=== PATIENT | male | born 1965 | race African-American/Black ===

== ENCOUNTER 2016-10-05 17:13 | Emergency (ER) | payer MEDICAID ==
[~2016-10-05] VITALS: Ht 180.3 cm; Wt 75.0 kg
[~2016-10-05 17:13] MED LIST: seroquel; zoloft
[2016-10-06 02:45] VITALS: BP 136/78
== END 2016-10-06 02:59 | disposition home or self-care (01) ==
LOC: ER 17:14
DX: S20.212A Contusion of left front wall of thorax, initial encounter (principal); I10 Essential (primary) hypertension; F31.9 Bipolar disorder, unspecified; W22.8XXA Striking against or struck by other objects, initial encounter; Y93.89 Activity, other specified; Y99.8 Other external cause status; Y92.89 Other specified places as the place of occurrence of the external cause
CPT/HCPCS: 36415; 99284; G0482; Z7610

== ENCOUNTER 2016-10-19 19:38 | Emergency (ER) | payer MEDICAID ==
[~2016-10-19] VITALS: Ht 177.8 cm; Wt 69.0 kg
[2016-10-19] MEDS ORDERED: ACETAMINOPHEN 325MG TABLET PO ONE (20:45)
[2016-10-19 21:04] LABS: HEMATOCRIT. 34.5 % (42.0-52.0); HEMOGLOBIN. 11.4 g/dL (14.0-18.0); MEAN CORPUSCULAR HEMOGLOBIN 26.8 pg (28.0-32.0); MEAN CORPUSCULAR HGB CONC 33.2 g/dL (31.0-37.0); MEAN CORPUSCULAR VOLUME 80.9 fL (80.0-94.0); MEAN PLATELET VOLUME 7.3 fl (7.4-10.4); PLATELET 238 x1000/uL (130-400); RED BLOOD CELL COUNT 4.26 mill/uL (4.7-6.1); RED CELL DISTRIBUTION WIDTH 17.7 % (11.6-14.6); WHITE BLOOD COUNT 4.4 x1000/uL (4.5-11.0)
[2016-10-19 21:05] LABS: DIFFERENTIAL COMMENT 1
[2016-10-19 21:06] LABS: CHLORIDE 107 mEq/L (98-107)
[2016-10-19 21:17] LABS: ALANINE AMINOTRANSFERASE 48 IU/L (13-61); ALBUMIN 3.6 g/dL (3.4-5.0); ANION GAP 15; CALCIUM 8.4 mg/dL (8.5-10.1); CARBON DIOXIDE 25 mEq/L (21-32); INDEX HEMOLYSI 1 (1-3); INDEX ICTERIC 1 (1-4); INDEX LIPEMIC 1 (1-3); UREA NITROGEN BLOOD 6 mg/dL (7-21); eGFR > 60 mL/min (>60)
[2016-10-19 21:21] LABS: PLATELET ESTIMATE NORMAL
[2016-10-19 21:25] LABS: ETHANOL BLOOD 385 mg/dL
[2016-10-19 21:34] LABS: CLARITY URINE CLEAR (CLEAR); COLOR URINE YELLOW (YELLOW); GLUCOSE URINE NEGATIVE (NEGATIVE); KETONES URINE NEGATIVE (NEGATIVE); LEUKOCYTE ESTERASE URINE NEGATIVE (NEGATIVE); NITRITE URINE NEGATIVE (NEGATIVE); OCCULT BLOOD URINE NEGATIVE (NEGATIVE); PROTEIN URINE NEGATIVE (NEGATIVE); SPECIFIC GRAVITY URINE 1.011 (1.005-1.030); UROBILINOGEN URINE 0.2 E.U./dL (0.2-1.0)
[2016-10-20 02:16] VITALS: BP 136/90
== END 2016-10-20 02:21 | disposition home or self-care (01) ==
LOC: ER 19:38
DX: F10.10 Alcohol abuse, uncomplicated (principal); F31.9 Bipolar disorder, unspecified; I10 Essential (primary) hypertension; F20.9 Schizophrenia, unspecified; F17.210 Nicotine dependence, cigarettes, uncomplicated; Z79.899 Other long term (current) drug therapy; Y90.8 Blood alcohol level of 240 mg/100 ml or more
CPT/HCPCS: 36415; 74176; 80053; 81003; 85025; 99285; G0482; Z7610

== ENCOUNTER 2017-01-08 11:00 | Emergency (ER) | payer MEDICAID ==
[~2017-01-08] VITALS: Ht 172.7 cm; Wt 75.0 kg
[2017-01-08 12:42] VITALS: BP 126/72
== END 2017-01-08 12:46 | disposition home or self-care (01) ==
LOC: ER 11:00
DX: F10.229 Alcohol dependence with intoxication, unspecified (principal); Y90.9 Presence of alcohol in blood, level not specified; F20.9 Schizophrenia, unspecified; I10 Essential (primary) hypertension; F17.290 Nicotine dependence, other tobacco product, uncomplicated
CPT/HCPCS: 99283

== ENCOUNTER 2017-07-19 14:49 | Emergency (ER) | payer MEDICAID ==
[~2017-07-19] VITALS: Ht 172.7 cm; Wt 70.0 kg
[2017-07-19] MEDS ORDERED: SODIUM CHLORIDE 0.9% 1,000 ML IV ONE (15:15)
[2017-07-19 15:39] VITALS: BP 118/78
[2017-07-19 15:43] LABS: CHLORIDE 105 mEq/L (98-107)
[2017-07-19 15:52] LABS: BASOPHILS % 0.2 % (0.0-2.0); EOSINOPHILS % 1.5 % (0.0-5.0); HEMATOCRIT. 35.8 % (42.0-52.0); HEMOGLOBIN. 11.8 g/dL (14.0-18.0); MEAN CORPUSCULAR HEMOGLOBIN 27.6 pg (28.0-32.0); MEAN CORPUSCULAR VOLUME 83.9 fL (80.0-94.0); MEAN PLATELET VOLUME 7.6 fl (7.4-10.4); MONOCYTES % 13.3 % (2.0-8.0); PLATELET 159 x1000/uL (130-400); RED BLOOD CELL COUNT 4.27 mill/uL (4.7-6.1); RED CELL DISTRIBUTION WIDTH 15.4 % (11.6-14.6)
[2017-07-19 15:57] LABS: ETHANOL BLOOD 392 mg/dL
== END 2017-07-19 16:13 | disposition left against medical advice (07) ==
LOC: ER 14:49
DX: S09.90XA Unspecified injury of head, initial encounter (principal); F10.229 Alcohol dependence with intoxication, unspecified; F20.9 Schizophrenia, unspecified; I10 Essential (primary) hypertension; F31.9 Bipolar disorder, unspecified; F17.200 Nicotine dependence, unspecified, uncomplicated; X58.XXXA Exposure to other specified factors, initial encounter; Y93.89 Activity, other specified; Y92.89 Other specified places as the place of occurrence of the external cause; Y99.8 Other external cause status
CPT/HCPCS: 36415; 80048; 85025; 99284; G0482; J7030

== ENCOUNTER 2017-12-19 17:27 | Emergency (ER) | payer MEDICAID ==
[~2017-12-19] VITALS: Ht 170.2 cm; Wt 65.0 kg
[2017-12-19] MEDS ORDERED: IBUPROFEN 600MG TABLET PO ONE (19:30)
[2017-12-20 00:15] VITALS: BP 122/76
== END 2017-12-20 00:20 | disposition home or self-care (01) ==
LOC: ER 19:14
DX: T51.91XA Toxic effect of unspecified alcohol, accidental (unintentional), initial encounter (principal); L02.415 Cutaneous abscess of right lower limb; I10 Essential (primary) hypertension; J45.909 Unspecified asthma, uncomplicated; Y92.89 Other specified places as the place of occurrence of the external cause
CPT/HCPCS: 36415; 73560; 99285; G0482

== ENCOUNTER 2017-12-31 11:41 | Emergency (ER) | payer MEDICAID ==
[~2017-12-31] VITALS: Ht 172.7 cm; Wt 65.0 kg
[2017-12-31] MEDS ORDERED: LIDOCAINE HCL 1% 20ML VIAL (Pyxis) INJ INFIL ONE (12:15)
[2017-12-31] MEDS ORDERED: CEFTRIAXONE SODIUM 1 G/VIAL IM ONE (12:15)
[2017-12-31 12:16] VITALS: BP 107/82
[2017-12-31] MEDS ORDERED: LIDOCAINE HCL/PF 1% 10 MG/ML 5ML VIAL IJ SCH (12:30)
== END 2017-12-31 17:14 | disposition left against medical advice (07) ==
LOC: ER 11:59
DX: S81.831D Puncture wound without foreign body, right lower leg, subsequent encounter (principal); F10.229 Alcohol dependence with intoxication, unspecified; J45.909 Unspecified asthma, uncomplicated; I10 Essential (primary) hypertension; X58.XXXD Exposure to other specified factors, subsequent encounter; Y90.9 Presence of alcohol in blood, level not specified
CPT/HCPCS: 73590; 87070; 87077; 87186; 87205; 96372; 99285; J0696; J3490; Z7610

== ENCOUNTER 2018-03-13 23:21 | Emergency (ER) | payer MEDICAID, OTHER ==
[~2018-03-13] VITALS: Ht 167.6 cm; Wt 77.0 kg
[2018-03-14] MEDS ORDERED: SODIUM CHLORIDE 0.9% 1,000 ML IV ONE (00:28)
[2018-03-14 00:59] LABS: BASOPHILS % 0.4 % (0.0-2.0); HEMATOCRIT. 36.6 % (42.0-52.0); HEMOGLOBIN. 12.2 g/dL (14.0-18.0); LYMPHOCYTES % 31.9 % (20.0-50.0); MEAN CORPUSCULAR HEMOGLOBIN 28.3 pg (28.0-32.0); MEAN CORPUSCULAR VOLUME 84.8 fL (80.0-94.0); MEAN PLATELET VOLUME 7.4 fl (7.4-10.4); MONOCYTES % 11.1 % (2.0-8.0); NEUTROPHILS % 55.6 % (40.0-76.0); PLATELET 150 x1000/uL (130-400); RED BLOOD CELL COUNT 4.31 mill/uL (4.7-6.1); RED CELL DISTRIBUTION WIDTH 15.6 % (11.6-14.6)
[2018-03-14 01:06] LABS: CHLORIDE 102 mEq/L (98-107)
[2018-03-14 01:07] LABS: PROTHROMBIN TIME 10.5 sec (9.1-11.1)
[2018-03-14 01:18] LABS: CLARITY URINE CLEAR (CLEAR); COLOR URINE YELLOW (YELLOW); KETONES URINE NEGATIVE (NEGATIVE); LEUKOCYTE ESTERASE URINE NEGATIVE (NEGATIVE); NITRITE URINE NEGATIVE (NEGATIVE); OCCULT BLOOD URINE NEGATIVE (NEGATIVE); PH URINE 5.5 (4.5-8.0); PROTEIN URINE NEGATIVE (NEGATIVE); SPECIFIC GRAVITY URINE 1.001 (1.005-1.030); UROBILINOGEN URINE 0.2 E.U./dL (0.2-1.0)
[2018-03-14 01:40] LABS: *AMPHETAMINES SCREEN URINE NEGATIVE (NEGATIVE); *BARBITURATES SCREEN URINE NEGATIVE (NEGATIVE); *BENZODIAZEPINES SCREEN URINE NEGATIVE (NEGATIVE); *COCAINE SCREEN URINE NEGATIVE (NEGATIVE); METHADONE URINE SCREEN NEGATIVE (NEGATIVE); OPIATES URINE SCREEN NEGATIVE (NEGATIVE)
[2018-03-14 01:41] LABS: CANNABINOID URINE SCREEN NEGATIVE (NEGATIVE); PHENCYCLIDINE URINE SCREEN NEGATIVE (NEGATIVE)
[2018-03-14 02:07] LABS: ETHANOL BLOOD 374 mg/dL
[2018-03-14] MEDS ORDERED: POTASSIUM CHLORIDE 20MEQ TABLET SR PO ONE (03:00)
[2018-03-14 06:37] VITALS: BP 126/75
== END 2018-03-14 07:05 | disposition home or self-care (01) ==
LOC: ER 23:21
DX: F10.229 Alcohol dependence with intoxication, unspecified (principal); F31.9 Bipolar disorder, unspecified; F20.9 Schizophrenia, unspecified; V29.88XA Motorcycle rider (driver) (passenger) injured in other specified transport accidents, initial encounter; Y93.89 Activity, other specified; Y92.89 Other specified places as the place of occurrence of the external cause; Y99.8 Other external cause status; Y90.8 Blood alcohol level of 240 mg/100 ml or more
CPT/HCPCS: 36415; 70450; 71045; 72125; 80053; 80305; 80307; 80329; 81003; 85025; 85610; 93005; 99285; G0482; J7030; Z7610

== ENCOUNTER 2018-03-19 16:23 | Emergency (ER) | payer MEDICAID, OTHER ==
[~2018-03-19] VITALS: Ht 170.2 cm; Wt 67.0 kg
[2018-03-19 16:36] VITALS: BP 138/78
== END 2018-03-19 17:04 | disposition left against medical advice (07) ==
LOC: ER 16:50
DX: Z53.21 Procedure and treatment not carried out due to patient leaving prior to being seen by health care provider (principal)

== ENCOUNTER 2018-04-12 14:16 | Emergency (ER) | payer MEDICAID ==
[~2018-04-12] VITALS: Ht 172.7 cm; Wt 75.0 kg
[2018-04-12 14:30] VITALS: BP 105/64
[2018-04-12] MEDS ORDERED: SODIUM CHLORIDE 0.9% 1,000 ML IV ONE (14:37)
[2018-04-12] MEDS ORDERED: AZITHROMYCIN 500 MG TABLET PO ONE (14:45)
[2018-04-12] MEDS ORDERED: PENICILLIN G BENZATHINE 2,400,000 UNITS/4ML SYR IM ONE (14:45)
[2018-04-12 15:21] LABS: *AMPHETAMINES SCREEN URINE NEGATIVE (NEGATIVE); *BARBITURATES SCREEN URINE NEGATIVE (NEGATIVE); *BENZODIAZEPINES SCREEN URINE NEGATIVE (NEGATIVE); *COCAINE SCREEN URINE NEGATIVE (NEGATIVE); CANNABINOID URINE SCREEN NEGATIVE (NEGATIVE); METHADONE URINE SCREEN NEGATIVE (NEGATIVE); OPIATES URINE SCREEN NEGATIVE (NEGATIVE); PHENCYCLIDINE URINE SCREEN NEGATIVE (NEGATIVE)
[2018-04-12 15:53] LABS: BASOPHILS % 0.9 % (0.0-2.0); EOSINOPHILS % 0.8 % (0.0-5.0); HEMATOCRIT. 35.3 % (42.0-52.0); HEMOGLOBIN. 11.9 g/dL (14.0-18.0); LYMPHOCYTES % 42.1 % (20.0-50.0); MEAN CORPUSCULAR HEMOGLOBIN 28.5 pg (28.0-32.0); MEAN PLATELET VOLUME 7.4 fl (7.4-10.4); MONOCYTES % 7.7 % (2.0-8.0); NEUTROPHILS % 48.5 % (40.0-76.0); PLATELET 222 x1000/uL (130-400); RED BLOOD CELL COUNT 4.16 mill/uL (4.7-6.1); RED CELL DISTRIBUTION WIDTH 16.1 % (11.6-14.6)
[2018-04-12 15:57] LABS: CHLORIDE 109 mEq/L (98-107)
[2018-04-12 16:14] LABS: ETHANOL BLOOD 403 mg/dL
[2018-04-12] MEDS ORDERED: IBUPROFEN 600MG TABLET PO ONE (16:45)
[2018-04-16 07:16] LABS: CHLAMYDIA TRACHOMATIS NAA Negative (Negative); NEISSERIA GONORRHOEAE NAA Negative (Negative)
== END 2018-04-12 17:20 | disposition home or self-care (01) ==
LOC: ER 14:16
DX: F10.229 Alcohol dependence with intoxication, unspecified (principal); Y90.8 Blood alcohol level of 240 mg/100 ml or more; R51 Headache; M25.561 Pain in right knee; A53.9 Syphilis, unspecified; Z71.89 Other specified counseling; I10 Essential (primary) hypertension; Z91.81 History of falling
CPT/HCPCS: 36415; 70450; 73560; 80053; 80305; 82962; 85025; 87491; 87591; 99285; G0482; J0561; J7030

== ENCOUNTER 2019-03-20 21:06 | Emergency (ER) | payer MEDICAID ==
[~2019-03-20] VITALS: Ht 177.8 cm; Wt 72.0 kg
[2019-03-21] MEDS ORDERED: TETANUS, DIPHTHERIA, PERTUSSIS VAC/PF 0.5ML (>7YR OLD) IM ONE (03:45)
[2019-03-21] MEDS ORDERED: LIDOCAINE 1%/EPI 1:100,000 10 ML VIAL IJ ONE (03:45)
[2019-03-21 07:06] VITALS: BP 133/87
== END 2019-03-21 07:09 | disposition home or self-care (01) ==
LOC: ER 21:35
DX: S01.01XA Laceration without foreign body of scalp, initial encounter (principal); F10.129 Alcohol abuse with intoxication, unspecified; I10 Essential (primary) hypertension; F20.9 Schizophrenia, unspecified; F17.200 Nicotine dependence, unspecified, uncomplicated; Y90.9 Presence of alcohol in blood, level not specified; W01.0XXA Fall on same level from slipping, tripping and stumbling without subsequent striking against object, initial encounter; Y93.89 Activity, other specified; Y92.89 Other specified places as the place of occurrence of the external cause; Y99.8 Other external cause status
CPT/HCPCS: 12001; 70450; 90471; 90715; 99284; J3490

== ENCOUNTER 2019-04-16 20:54 | Emergency (ER) | payer MEDICAID, OTHER ==
[~2019-04-16] VITALS: Ht 175.3 cm; Wt 68.0 kg
[2019-04-16] MEDS ORDERED: ACETAMINOPHEN 325MG TABLET PO ONE (23:00)
[2019-04-17 08:33] VITALS: BP 140/95
== END 2019-04-17 08:33 | disposition home or self-care (01) ==
LOC: ER 21:09
DX: G89.29 Other chronic pain (principal); M54.9 Dorsalgia, unspecified; M79.605 Pain in left leg; M79.604 Pain in right leg; F10.129 Alcohol abuse with intoxication, unspecified; I10 Essential (primary) hypertension; F20.9 Schizophrenia, unspecified; Z88.2 Allergy status to sulfonamides; Z79.899 Other long term (current) drug therapy; Z59.0 Homelessness; Y90.9 Presence of alcohol in blood, level not specified
CPT/HCPCS: 99283

== ENCOUNTER 2019-04-21 21:31 | Emergency (ER) | payer OTHER ==
[~2019-04-21] VITALS: Ht 172.7 cm; Wt 69.0 kg
[2019-04-22] MEDS ORDERED: HYDROCODONE/ACETAMINOPHEN 5/325MG TABLET PO ONE (00:30)
[2019-04-22 03:36] VITALS: BP 118/78
== END 2019-04-22 03:38 | disposition home or self-care (01) ==
LOC: ER 21:31
DX: G89.29 Other chronic pain (principal); M25.552 Pain in left hip; Z71.89 Other specified counseling; I10 Essential (primary) hypertension; Z87.828 Personal history of other (healed) physical injury and trauma; Z86.73 Personal history of transient ischemic attack (TIA), and cerebral infarction without residual deficits
CPT/HCPCS: 99283; Z7610

== ENCOUNTER 2019-07-02 13:36 | Emergency (ER) | payer MEDICAID ==
[~2019-07-02] VITALS: Ht 175.3 cm; Wt 73.0 kg
[2019-07-02 18:05] VITALS: BP 112/76
== END 2019-07-02 18:08 | disposition home or self-care (01) ==
LOC: ER 13:36
DX: M79.602 Pain in left arm (principal); K08.89 Other specified disorders of teeth and supporting structures
CPT/HCPCS: 99283

== ENCOUNTER 2019-07-18 14:46 | Emergency (ER) | payer MEDICAID ==
[~2019-07-18] VITALS: Ht 172.7 cm; Wt 76.0 kg
[2019-07-18 14:48] VITALS: BP 103/57
== END 2019-07-18 15:20 | disposition left against medical advice (07) ==
LOC: ER 14:52
DX: Z53.21 Procedure and treatment not carried out due to patient leaving prior to being seen by health care provider (principal)

== ENCOUNTER 2019-08-04 01:30 | Emergency (ER) | payer MEDICAID ==
[~2019-08-04] VITALS: Ht 172.7 cm; Wt 72.0 kg
[2019-08-04 08:17] VITALS: BP 125/88
== END 2019-08-04 08:33 | disposition home or self-care (01) ==
LOC: ER 01:30
DX: F10.129 Alcohol abuse with intoxication, unspecified (principal); G89.29 Other chronic pain; R47.81 Slurred speech; F17.200 Nicotine dependence, unspecified, uncomplicated; F19.10 Other psychoactive substance abuse, uncomplicated; Z59.0 Homelessness; Z98.890 Other specified postprocedural states; Z88.2 Allergy status to sulfonamides; Y90.9 Presence of alcohol in blood, level not specified
CPT/HCPCS: 99283

== ENCOUNTER 2019-09-10 23:14 | Emergency (ER) | payer MEDICAID ==
[~2019-09-10] VITALS: Ht 175.3 cm; Wt 69.0 kg
[2019-09-11] MEDS ORDERED: IBUPROFEN 600MG TABLET PO ONE (05:45)
[2019-09-11 08:15] VITALS: BP 114/72
== END 2019-09-11 08:55 | disposition home or self-care (01) ==
LOC: ER 23:14
DX: F10.129 Alcohol abuse with intoxication, unspecified (principal); Y90.8 Blood alcohol level of 240 mg/100 ml or more; R03.0 Elevated blood-pressure reading, without diagnosis of hypertension; F20.9 Schizophrenia, unspecified; Z88.2 Allergy status to sulfonamides
CPT/HCPCS: 36415; 80320; 99285; G0480

== ENCOUNTER 2019-10-06 15:12 | Emergency (ER) | payer MEDICAID ==
[~2019-10-06] VITALS: Ht 180.3 cm; Wt 73.0 kg
[2019-10-07 06:00] VITALS: BP 155/83
== END 2019-10-07 09:00 | disposition home or self-care (01) ==
LOC: ER 15:12
DX: F10.129 Alcohol abuse with intoxication, unspecified (principal); I10 Essential (primary) hypertension; Z91.012 Allergy to eggs; Y90.9 Presence of alcohol in blood, level not specified
CPT/HCPCS: 99285

== ENCOUNTER 2020-03-07 15:31 | Emergency (ER) | payer MEDICAID ==
[~2020-03-07] VITALS: Ht 180.3 cm; Wt 82.0 kg
[2020-03-07 15:38] VITALS: BP 102/78
== END 2020-03-07 17:32 | disposition left against medical advice (07) ==
LOC: ER 15:31
DX: Z53.21 Procedure and treatment not carried out due to patient leaving prior to being seen by health care provider (principal)

== ENCOUNTER 2020-04-18 21:03 | Emergency (ER) | payer MEDICAID ==
[~2020-04-18] VITALS: Ht 175.3 cm; Wt 632.0 kg
[2020-04-18 21:08] VITALS: BP 153/94
[2020-04-18] MEDS ORDERED: NAPROXEN 250MG TABLET PO ONE (23:30)
[2020-04-18] MEDS ORDERED: IBUPROFEN 600MG TABLET PO ONE (23:45)
== END 2020-04-19 04:17 | disposition home or self-care (01) ==
LOC: ER 21:03
DX: M25.561 Pain in right knee (principal); I10 Essential (primary) hypertension; F20.9 Schizophrenia, unspecified; Z88.2 Allergy status to sulfonamides
CPT/HCPCS: 73562; 99283

== ENCOUNTER 2020-07-26 13:28 | Emergency (ER) | payer MEDICAID ==
[~2020-07-26] VITALS: Ht 182.9 cm; Wt 85.0 kg
[2020-07-26] MEDS ORDERED: SODIUM CHLORIDE 0.9% 1,000 ML IV ONE (13:45)
[2020-07-26 14:15] LABS: HEMATOCRIT. 28.6 % (42.0-52.0); HEMOGLOBIN. 9.1 g/dL (14.0-18.0); MEAN CORPUSCULAR VOLUME 69.4 fL (80.0-94.0); MEAN PLATELET VOLUME 8.5 fl (7.4-10.4); PLATELET 123 x1000/uL (130-400); RED BLOOD CELL COUNT 4.13 mill/uL (4.7-6.1); RED CELL DISTRIBUTION WIDTH 22.1 % (11.6-14.6)
[2020-07-26 14:20] LABS: CHLORIDE 104 mEq/L (98-107)
[2020-07-26 14:33] LABS: PLATELET ESTIMATE SLIGHTLY DECREASED
[2020-07-26 14:47] LABS: ETHANOL BLOOD 448 mg/dL
[2020-07-26 21:07] VITALS: BP 113/75
== END 2020-07-26 21:16 | disposition home or self-care (01) ==
LOC: ER 13:41
DX: F10.129 Alcohol abuse with intoxication, unspecified (principal); I10 Essential (primary) hypertension; Z88.2 Allergy status to sulfonamides; Z86.59 Personal history of other mental and behavioral disorders; Y90.8 Blood alcohol level of 240 mg/100 ml or more
CPT/HCPCS: 36415; 80053; 80320; 85025; 93005; 96360; 96361; 99285; J7030; G0480

== ENCOUNTER 2020-10-06 16:32 | Inpatient (IN) | payer MEDICAID ==
[~2020-10-06] VITALS: Ht 172.7 cm; Wt 60.8 kg
[~2020-10-06 16:32] MED LIST changes: +TOPUD PO
[2020-10-06] MEDS ORDERED: SODIUM CHLORIDE 0.9% 1,000 ML IV ONE (17:00)
[2020-10-06 17:37] LABS: CLARITY URINE CLEAR (CLEAR); COLOR URINE YELLOW (YELLOW); KETONES URINE TRACE (NEGATIVE); LEUKOCYTE ESTERASE URINE NEGATIVE (NEGATIVE); NITRITE URINE NEGATIVE (NEGATIVE); OCCULT BLOOD URINE NEGATIVE (NEGATIVE); PH URINE 5.5 (4.5-8.0); PROTEIN URINE NEGATIVE (NEGATIVE); SPECIFIC GRAVITY URINE 1.008 (1.005-1.030); UROBILINOGEN URINE 0.2 E.U./dL (0.2-1.0)
[2020-10-06 17:41] LABS: CHLORIDE 105 mEq/L (98-107)
[2020-10-06 17:42] LABS: BASOPHILS % 2.6 % (0.0-2.0); EOSINOPHILS % 1.5 % (0.0-5.0); HEMATOCRIT. 25.4 % (42.0-52.0); HEMOGLOBIN. 8.3 g/dL (14.0-18.0); LYMPHOCYTES % 37.6 % (20.0-50.0); MEAN CORPUSCULAR HEMOGLOBIN 24.5 pg (28.0-32.0); MEAN CORPUSCULAR VOLUME 74.7 fL (80.0-94.0); MEAN PLATELET VOLUME 6.8 fl (7.4-10.4); MONOCYTES % 11.1 % (2.0-8.0); NEUTROPHILS % 47.2 % (40.0-76.0); PLATELET 267 x1000/uL (130-400); RED BLOOD CELL COUNT 3.39 mill/uL (4.7-6.1); RED CELL DISTRIBUTION WIDTH 23.2 % (11.6-14.6)
[2020-10-06 17:58] LABS: ETHANOL BLOOD 426 mg/dL
[2020-10-06 18:10] LABS: PLATELET ESTIMATE NORMAL
[2020-10-06 18:10] LABS: *AMPHETAMINES SCREEN URINE NEGATIVE (NEGATIVE); *BARBITURATES SCREEN URINE NEGATIVE (NEGATIVE); *BENZODIAZEPINES SCREEN URINE NEGATIVE (NEGATIVE); *COCAINE SCREEN URINE NEGATIVE (NEGATIVE); METHADONE URINE SCREEN NEGATIVE (NEGATIVE); OPIATES URINE SCREEN NEGATIVE (NEGATIVE); PHENCYCLIDINE URINE SCREEN NEGATIVE (NEGATIVE)
[2020-10-06 18:12] LABS: CANNABINOID URINE SCREEN NEGATIVE (NEGATIVE)
[2020-10-06] MEDS ORDERED: FOLIC ACID 1 MG, THIAMINE HCL 100 MG, MVI, ADULT NO.1 10 ML in DEXTROSE 5% WATER 1,000 ML IV ONE (19:00)
[2020-10-06 22:05] VITALS: BP 135/80
[2020-10-07] VITALS: BP 135/80
[2020-10-07] MEDS ORDERED: HYDROCODONE/ACETAMINOPHEN 5/325MG TABLET PO PRN (00:15)
[2020-10-07] MEDS ORDERED: POTASSIUM CHLORIDE 20MEQ TABLET SR PO NR (01:00)
[2020-10-07] MEDS: SODIUM CHLORIDE 0.9% 1,000 ML IV SCH ×2 (01:22→14:40)
[2020-10-07 04:00] VITALS: BP 148/83
[2020-10-07] MEDS: CHLORDIAZEPOXIDE 25MG CAPSULE PO SCH ×3 (06:05→21:37)
[2020-10-07 08:00] VITALS: BP 119/91
[2020-10-07] MEDS: FOLIC ACID 1MG TABLET PO SCH (09:30)
[2020-10-07] MEDS: THIAMINE HCL 100MG TABLET PO SCH (09:30)
[2020-10-07 12:00] VITALS: BP 163/92
[2020-10-07] MEDS: SERTRALINE HCL 25MG TABLET PO SCH (14:39)
[2020-10-07] MEDS: MULTIVITAMINS,THER W-MINERALS TABLET PO SCH (14:40)
[2020-10-07] MEDS: AMLODIPINE 2.5MG TABLET PO SCH (14:40)
[2020-10-07 16:00] VITALS: BP 153/87
[2020-10-07 17:49] LABS: FOLIC ACID (FOLATE) SERUM >20 ng/mL ng/mL (>5.38)
[2020-10-07 17:54] LABS: FERRITIN 22 ng/mL (22-322)
[2020-10-07 18:01] LABS: VITAMIN B12 SERUM 570 pg/mL (211-911)
[2020-10-07 20:00] VITALS: BP_SYST 137; BP_SYST 142; BP_SYST 148; BP_SYST 85; BP_DIAS 58; BP_DIAS 89; BP_DIAS 91; BP_DIAS 94
[2020-10-07] MEDS ORDERED: QUETIAPINE FUMARATE 25MG TABLET PO SCH (21:00)
[2020-10-08] VITALS: BP 112/71
[2020-10-08] MEDS: SODIUM CHLORIDE 0.9% 1,000 ML IV SCH ×2 (01:23→13:41)
[2020-10-08 04:00] VITALS: BP 163/91
[2020-10-08 05:00] VITALS: BP_SYST 113; BP_SYST 132; BP_SYST 89; BP_DIAS 49; BP_DIAS 80; BP_DIAS 83
[2020-10-08] MEDS ORDERED: CLONIDINE 0.1MG TABLET PO PRN (05:00)
[2020-10-08] MEDS: CHLORDIAZEPOXIDE 25MG CAPSULE PO SCH ×2 (05:17→13:40)
[2020-10-08 08:00] VITALS: BP 131/86
[2020-10-08 08:00] LABS: HEMATOCRIT. 28.5 % (42.0-52.0); HEMOGLOBIN. 9.2 g/dL (14.0-18.0); MEAN CORPUSCULAR VOLUME 74.4 fL (80.0-94.0); MEAN PLATELET VOLUME 6.9 fl (7.4-10.4); PLATELET 215 x1000/uL (130-400); RED BLOOD CELL COUNT 3.83 mill/uL (4.7-6.1); RED CELL DISTRIBUTION WIDTH 23.2 % (11.6-14.6)
[2020-10-08 08:06] LABS: CHLORIDE 104 mEq/L (98-107)
[2020-10-08] MEDS ORDERED: IRON SUCROSE COMPLEX 100 MG/5 ML ML IV SCH (09:00)
[2020-10-08] MEDS: THIAMINE HCL 100MG TABLET PO SCH (10:05)
[2020-10-08] MEDS: AMLODIPINE 2.5MG TABLET PO SCH (10:05)
[2020-10-08] MEDS: MULTIVITAMINS,THER W-MINERALS TABLET PO SCH (10:05)
[2020-10-08] MEDS: SERTRALINE HCL 25MG TABLET PO SCH (10:05)
[2020-10-08] MEDS: FOLIC ACID 1MG TABLET PO SCH (10:05)
[2020-10-08 12:00] VITALS: BP 125/82
[2020-10-08] MEDS ORDERED: L25 PO (13:21)
[2020-10-08] MEDS ORDERED: ATOR20TA65 MT (13:21)
[2020-10-08] MEDS ORDERED: ASPI-1406 MT (13:21)
[2020-10-08] MEDS ORDERED: THIA100T72 PO (13:21)
[2020-10-08] MEDS ORDERED: FOLI-43 PO (13:21)
[2020-10-08] MEDS ORDERED: MULT-1146 MT (13:22)
[2020-10-08 13:59] VITALS: BP 131/80
[2020-10-08 23:18] LABS: PLATELET ESTIMATE NORMAL
== END 2020-10-08 14:50 | disposition home or self-care (01) | DRG 775 ==
LOC: ER 16:32 → 6EST 19:34 → ENRESERV 20:46 → 6EST 10-07 00:57
PROVIDERS: ADMIT Internal Medicine; ATTEND Internal Medicine
DX: F10.229 Alcohol dependence with intoxication, unspecified (principal); I67.82 Cerebral ischemia; S09.90XA Unspecified injury of head, initial encounter; F20.9 Schizophrenia, unspecified; H05.20 Unspecified exophthalmos; D50.9 Iron deficiency anemia, unspecified; F17.200 Nicotine dependence, unspecified, uncomplicated; E87.6 Hypokalemia; I10 Essential (primary) hypertension; J32.0 Chronic maxillary sinusitis; G31.9 Degenerative disease of nervous system, unspecified; K27.9 Peptic ulcer, site unspecified, unspecified as acute or chronic, without hemorrhage or perforation; W18.39XA Other fall on same level, initial encounter; Y93.89 Activity, other specified; Y92.098 Other place in other non-institutional residence as the place of occurrence of the external cause; Y99.8 Other external cause status; Z82.49 Family history of ischemic heart disease and other diseases of the circulatory system; Z86.73 Personal history of transient ischemic attack (TIA), and cerebral infarction without residual deficits; Z91.048 Other nonmedicinal substance allergy status
CPT/HCPCS: 36415; 70544; 70553; 73030; 80048; 80053; 80061; 80305; 80307; 80320; 80329; 81003; 82140; 82607; 82728; 82746; 83036; 83540; 83550; 84443; 85025; 93005; 93880; 97161; 99285; J3411; J3490; J7030; J7070; G0480

== ENCOUNTER 2020-10-26 20:05 | Emergency (ER) | payer MEDICAID ==
[~2020-10-26] VITALS: Ht 175.3 cm; Wt 72.0 kg
[~2020-10-26 20:05] MED LIST changes: +ASPI-1406 MT; +ATOR20TA65 MT; +FOLI-43 PO; +L25 PO; +MULT-1146 MT; +THIA100T72 PO
[2020-10-26] MEDS ORDERED: ACETAMINOPHEN 325MG TABLET PO ONE (22:45)
[2020-10-27] MEDS ORDERED: TOPUD MT (00:57)
[2020-10-27 02:24] VITALS: BP 125/79
== END 2020-10-27 02:26 | disposition home or self-care (01) ==
LOC: ER 20:05
DX: M79.605 Pain in left leg (principal); M79.604 Pain in right leg; I10 Essential (primary) hypertension; Z87.11 Personal history of peptic ulcer disease; F20.9 Schizophrenia, unspecified
CPT/HCPCS: 99283

== ENCOUNTER 2021-02-01 12:43 | Emergency (ER) | payer MEDICAID ==
[~2021-02-01] VITALS: Ht 167.6 cm; Wt 75.0 kg
[~2021-02-01 12:43] MED LIST changes: +TOPUD MT
[2021-02-01 18:37] VITALS: BP 139/87
== END 2021-02-01 19:06 | disposition home or self-care (01) ==
LOC: ER 12:51
DX: T51.0X1A Toxic effect of ethanol, accidental (unintentional), initial encounter (principal); G92 Toxic encephalopathy; F10.129 Alcohol abuse with intoxication, unspecified; Y90.9 Presence of alcohol in blood, level not specified; R10.9 Unspecified abdominal pain; Y92.89 Other specified places as the place of occurrence of the external cause; I10 Essential (primary) hypertension; F20.9 Schizophrenia, unspecified
CPT/HCPCS: 82962; 93005; 99284

== ENCOUNTER 2021-02-19 15:58 | Emergency (ER) | payer MEDICAID, OTHER ==
[~2021-02-19] VITALS: Ht 172.7 cm; Wt 77.0 kg
[2021-02-19] MEDS ORDERED: IBUPROFEN 600MG TABLET PO ONE (16:45)
[2021-02-19 20:30] VITALS: BP 129/79
== END 2021-02-19 20:38 | disposition home or self-care (01) ==
LOC: ER 15:58
DX: S00.83XA Contusion of other part of head, initial encounter (principal); S00.11XA Contusion of right eyelid and periocular area, initial encounter; F17.200 Nicotine dependence, unspecified, uncomplicated; I10 Essential (primary) hypertension; Z88.2 Allergy status to sulfonamides; Z79.899 Other long term (current) drug therapy; Y04.0XXA Assault by unarmed brawl or fight, initial encounter; Y93.89 Activity, other specified; Y92.89 Other specified places as the place of occurrence of the external cause; Y99.8 Other external cause status
CPT/HCPCS: 99284

== ENCOUNTER 2021-03-31 14:59 | Emergency (ER) | payer MEDICAID, OTHER ==
[~2021-03-31] VITALS: Ht 172.7 cm; Wt 75.0 kg
[2021-03-31 15:06] VITALS: BP 128/58
== END 2021-03-31 18:35 | disposition left against medical advice (07) ==
LOC: ER 14:59
DX: F10.129 Alcohol abuse with intoxication, unspecified (principal); Y90.4 Blood alcohol level of 80-99 mg/100 ml
CPT/HCPCS: 82962

== ENCOUNTER 2021-06-03 23:46 | Emergency (ER) | payer MEDICAID, OTHER ==
[~2021-06-03] VITALS: Ht 175.3 cm; Wt 73.0 kg
[2021-06-04 03:34] LABS: HEMATOCRIT. 34.3 % (42.0-52.0); MEAN CORPUSCULAR HEMOGLOBIN 24.5 pg (28.0-32.0); MEAN CORPUSCULAR VOLUME 76.3 fL (80.0-94.0); MEAN PLATELET VOLUME 7.4 fl (7.4-10.4); PLATELET 265 x1000/uL (130-400)
[2021-06-04 03:40] LABS: CHLORIDE 106 mEq/L (98-107)
[2021-06-04 04:46] LABS: ETHANOL BLOOD 353 mg/dL
[2021-06-04 06:40] VITALS: BP 105/65
[2021-06-04 07:16] LABS: PLATELET ESTIMATE NORMAL
== END 2021-06-04 06:59 | disposition home or self-care (01) ==
LOC: ER 23:46
DX: M79.18 Myalgia, other site (principal); I10 Essential (primary) hypertension; F20.9 Schizophrenia, unspecified; F10.229 Alcohol dependence with intoxication, unspecified; Y90.8 Blood alcohol level of 240 mg/100 ml or more
CPT/HCPCS: 36415; 80053; 80320; 85025; 99283; G0480

== ENCOUNTER 2021-08-16 11:53 | Emergency (ER) | payer MEDICAID, OTHER ==
[~2021-08-16] VITALS: Ht 180.3 cm; Wt 76.0 kg
[2021-08-16] MEDS ORDERED: NAPR-679 MT (13:54)
[2021-08-16 14:26] VITALS: BP 105/64
== END 2021-08-16 16:44 | disposition home or self-care (01) ==
LOC: ER 11:53
DX: M54.89 Other dorsalgia (principal); I10 Essential (primary) hypertension; F10.20 Alcohol dependence, uncomplicated; Y90.9 Presence of alcohol in blood, level not specified; F20.9 Schizophrenia, unspecified; Z87.828 Personal history of other (healed) physical injury and trauma
CPT/HCPCS: 99283

== ENCOUNTER 2021-08-28 20:11 | Emergency (ER) | payer OTHER ==
[~2021-08-28 20:11] MED LIST changes: +NAPR-679 MT
== END 2021-08-28 21:17 | disposition left against medical advice (07) ==
LOC: ER 20:11
DX: Z53.21 Procedure and treatment not carried out due to patient leaving prior to being seen by health care provider (principal)

== ENCOUNTER 2022-01-05 01:30 | Emergency (ER) | payer OTHER ==
[~2022-01-05] VITALS: Ht 172.7 cm; Wt 80.0 kg
[2022-01-05 02:48] LABS: CHLORIDE 107 mEq/L (98-107)
[2022-01-05 02:50] LABS: BASOPHILS % 0.8 % (0.0-2.0); EOSINOPHILS % 1.7 % (0.0-5.0); HEMATOCRIT. 35.3 % (42.0-52.0); HEMOGLOBIN. 11.5 g/dL (14.0-18.0); LYMPHOCYTES % 39.5 % (20.0-50.0); MEAN CORPUSCULAR HEMOGLOBIN 23.8 pg (28.0-32.0); MEAN CORPUSCULAR VOLUME 72.8 fL (80.0-94.0); MEAN PLATELET VOLUME 7.3 fl (7.4-10.4); MONOCYTES % 9.9 % (2.0-8.0); NEUTROPHILS % 48.1 % (40.0-76.0); PLATELET 251 x1000/uL (130-400); RED BLOOD CELL COUNT 4.85 mill/uL (4.7-6.1); RED CELL DISTRIBUTION WIDTH 18.2 % (11.6-14.6)
[2022-01-05 02:55] LABS: ETHANOL BLOOD 296 mg/dL
[2022-01-05 03:43] LABS: CLARITY URINE CLEAR (CLEAR); COLOR URINE YELLOW (YELLOW); KETONES URINE TRACE (NEGATIVE); LEUKOCYTE ESTERASE URINE NEGATIVE (NEGATIVE); NITRITE URINE NEGATIVE (NEGATIVE); OCCULT BLOOD URINE NEGATIVE (NEGATIVE); PROTEIN URINE TRACE (NEGATIVE); SPECIFIC GRAVITY URINE 1.011 (1.005-1.030); UROBILINOGEN URINE 0.2 E.U./dL (0.2-1.0)
[2022-01-05 03:53] LABS: *AMPHETAMINES SCREEN URINE NEGATIVE (NEGATIVE); *BARBITURATES SCREEN URINE NEGATIVE (NEGATIVE); *BENZODIAZEPINES SCREEN URINE NEGATIVE (NEGATIVE); *COCAINE SCREEN URINE NEGATIVE (NEGATIVE); CANNABINOID URINE SCREEN NEGATIVE (NEGATIVE); METHADONE URINE SCREEN NEGATIVE (NEGATIVE); OPIATES URINE SCREEN NEGATIVE (NEGATIVE); PHENCYCLIDINE URINE SCREEN NEGATIVE (NEGATIVE)
[2022-01-05 05:13] VITALS: BP 106/55
[2022-01-05] MEDS ORDERED: IBUPROFEN 400MG TABLET PO ONE (05:45)
== END 2022-01-05 06:49 | disposition home or self-care (01) ==
LOC: ER 01:30
DX: F10.129 Alcohol abuse with intoxication, unspecified (principal); M79.605 Pain in left leg; Z79.899 Other long term (current) drug therapy; Z98.890 Other specified postprocedural states; Z86.59 Personal history of other mental and behavioral disorders; Y90.8 Blood alcohol level of 240 mg/100 ml or more
CPT/HCPCS: 36415; 72170; 80053; 80305; 80320; 81003; 82962; 85025; 99284; G0480

== ENCOUNTER 2022-01-05 07:41 | Emergency (ER) | payer OTHER ==
[~2022-01-05] VITALS: Ht 175.3 cm; Wt 77.0 kg
[2022-01-05 08:08] VITALS: BP 147/88
[2022-01-05] MEDS ORDERED: ACETAMINOPHEN 325MG TABLET PO ONE (08:30)
== END 2022-01-05 09:35 | disposition home or self-care (01) ==
LOC: ER 07:41
DX: R51.9 Headache, unspecified (principal); F10.129 Alcohol abuse with intoxication, unspecified; Z88.2 Allergy status to sulfonamides; Z79.899 Other long term (current) drug therapy; Z86.59 Personal history of other mental and behavioral disorders; Y90.9 Presence of alcohol in blood, level not specified
CPT/HCPCS: 99284

== ENCOUNTER 2022-01-08 05:06 | Emergency (ER) | payer OTHER ==
[~2022-01-08] VITALS: Ht 180.3 cm; Wt 75.0 kg
[2022-01-08 05:14] VITALS: BP 136/98
[2022-01-08] MEDS ORDERED: TOPUD PO (06:59)
[2022-01-08] MEDS ORDERED: ACETAMINOPHEN 325MG TABLET PO ONE (07:00)
== END 2022-01-08 07:36 | disposition home or self-care (01) ==
LOC: ER 05:06
DX: M54.50 Low back pain, unspecified (principal); R03.0 Elevated blood-pressure reading, without diagnosis of hypertension
CPT/HCPCS: 99283

== ENCOUNTER 2022-01-09 12:08 | Emergency (ER) | payer OTHER ==
[~2022-01-09] VITALS: Ht 182.9 cm; Wt 64.0 kg
[2022-01-09 13:10] LABS: HEMATOCRIT. 29.8 % (42.0-52.0); HEMOGLOBIN. 9.7 g/dL (14.0-18.0); MEAN CORPUSCULAR HEMOGLOBIN 23.7 pg (28.0-32.0); MEAN CORPUSCULAR VOLUME 72.6 fL (80.0-94.0); PLATELET 171 x1000/uL (130-400); RED BLOOD CELL COUNT 4.11 mill/uL (4.7-6.1); RED CELL DISTRIBUTION WIDTH 17.9 % (11.6-14.6)
[2022-01-09 13:11] LABS: CLARITY URINE CLEAR (CLEAR); COLOR URINE YELLOW (YELLOW); KETONES URINE NEGATIVE (NEGATIVE); LEUKOCYTE ESTERASE URINE NEGATIVE (NEGATIVE); NITRITE URINE NEGATIVE (NEGATIVE); OCCULT BLOOD URINE NEGATIVE (NEGATIVE); PH URINE 5.5 (4.5-8.0); PROTEIN URINE NEGATIVE (NEGATIVE); SPECIFIC GRAVITY URINE 1.007 (1.005-1.030); UROBILINOGEN URINE 0.2 E.U./dL (0.2-1.0)
[2022-01-09 13:17] LABS: CHLORIDE 105 mEq/L (98-107)
[2022-01-09 13:33] LABS: ETHANOL BLOOD 308 mg/dL
[2022-01-09 13:40] LABS: *AMPHETAMINES SCREEN URINE NEGATIVE (NEGATIVE); *BARBITURATES SCREEN URINE NEGATIVE (NEGATIVE); *BENZODIAZEPINES SCREEN URINE NEGATIVE (NEGATIVE); *COCAINE SCREEN URINE NEGATIVE (NEGATIVE); CANNABINOID URINE SCREEN NEGATIVE (NEGATIVE); METHADONE URINE SCREEN NEGATIVE (NEGATIVE); OPIATES URINE SCREEN NEGATIVE (NEGATIVE); PHENCYCLIDINE URINE SCREEN NEGATIVE (NEGATIVE)
[2022-01-09 13:54] LABS: PLATELET ESTIMATE NORMAL
[2022-01-09] MEDS ORDERED: SODIUM CHLORIDE 0.9% 1,000 ML IV ONE (14:00)
[2022-01-10] MEDS ORDERED: FLUOXETINE HCL 20MG CAPSULE PO SCH (10:30)
[2022-01-10 13:30] VITALS: BP 129/76
[2022-01-10] MEDS ORDERED: QUETIAPINE FUMARATE 50MG TABLET PO SCH (21:00)
== END 2022-01-10 13:31 | disposition home or self-care (01) ==
LOC: ER 12:20
DX: F10.229 Alcohol dependence with intoxication, unspecified (principal); R45.851 Suicidal ideations; U07.1 COVID-19; F20.9 Schizophrenia, unspecified; R03.0 Elevated blood-pressure reading, without diagnosis of hypertension; Y90.8 Blood alcohol level of 240 mg/100 ml or more; D64.9 Anemia, unspecified
CPT/HCPCS: 36415; 70450; 80053; 80305; 80320; 81003; 85025; 96360; 99285; C9803; U0003; U0005; G0480

== ENCOUNTER 2022-01-13 15:18 | Emergency (ER) | payer OTHER ==
[~2022-01-13] VITALS: Ht 180.3 cm; Wt 73.0 kg
[2022-01-13] MEDS ORDERED: SODIUM CHLORIDE 0.9% 1,000 ML IV ONE (15:45)
[2022-01-13 16:19] LABS: CHLORIDE 97 mEq/L (98-107)
[2022-01-13 16:27] LABS: ETHANOL BLOOD 287 mg/dL
[2022-01-13 16:30] LABS: HEMATOCRIT. 29.8 % (42.0-52.0); HEMOGLOBIN. 9.8 g/dL (14.0-18.0); MEAN CORPUSCULAR HEMOGLOBIN 23.8 pg (28.0-32.0); MEAN CORPUSCULAR VOLUME 72.4 fL (80.0-94.0); MEAN PLATELET VOLUME 7.4 fl (7.4-10.4); PLATELET 122 x1000/uL (130-400); RED BLOOD CELL COUNT 4.12 mill/uL (4.7-6.1); RED CELL DISTRIBUTION WIDTH 17.3 % (11.6-14.6)
[2022-01-13] MEDS ORDERED: POTASSIUM CHLORIDE 20MEQ TABLET SR PO NR (17:00)
[2022-01-13 18:18] LABS: PLATELET ESTIMATE DECREASED
[2022-01-13 18:57] LABS: CLARITY URINE CLEAR (CLEAR); COLOR URINE YELLOW (YELLOW); KETONES URINE NEGATIVE (NEGATIVE); LEUKOCYTE ESTERASE URINE NEGATIVE (NEGATIVE); NITRITE URINE NEGATIVE (NEGATIVE); OCCULT BLOOD URINE 1+ (NEGATIVE); PROTEIN URINE NEGATIVE (NEGATIVE); SPECIFIC GRAVITY URINE 1.003 (1.005-1.030); UROBILINOGEN URINE 0.2 E.U./dL (0.2-1.0)
[2022-01-13 19:09] LABS: *AMPHETAMINES SCREEN URINE NEGATIVE (NEGATIVE); *BARBITURATES SCREEN URINE NEGATIVE (NEGATIVE); *BENZODIAZEPINES SCREEN URINE NEGATIVE (NEGATIVE); *COCAINE SCREEN URINE NEGATIVE (NEGATIVE); CANNABINOID URINE SCREEN NEGATIVE (NEGATIVE); METHADONE URINE SCREEN NEGATIVE (NEGATIVE); OPIATES URINE SCREEN NEGATIVE (NEGATIVE); PHENCYCLIDINE URINE SCREEN NEGATIVE (NEGATIVE)
[2022-01-14 05:00] VITALS: BP 135/79
== END 2022-01-14 05:05 | disposition home or self-care (01) ==
LOC: ER 15:18
DX: F10.229 Alcohol dependence with intoxication, unspecified (principal); Y90.8 Blood alcohol level of 240 mg/100 ml or more; D61.818 Other pancytopenia; E87.8 Other disorders of electrolyte and fluid balance, not elsewhere classified; Z20.822 Contact with and (suspected) exposure to COVID-19; F20.9 Schizophrenia, unspecified; Z79.899 Other long term (current) drug therapy
CPT/HCPCS: 36415; 80053; 80305; 80320; 81003; 85025; 96360; 99285; C9803; J7030; U0003; U0005; G0480

== ENCOUNTER 2022-03-03 19:11 | Emergency (ER) | payer MEDICAID, OTHER ==
[~2022-03-03] VITALS: Ht 170.2 cm; Wt 71.0 kg
[2022-03-03] MEDS ORDERED: SODIUM CHLORIDE 0.9% 1,000 ML IV ONE (20:45)
[2022-03-03 21:01] LABS: BASOPHILS % 2.2 % (0.0-2.0); EOSINOPHILS % 2.4 % (0.0-5.0); HEMATOCRIT. 30.5 % (42.0-52.0); HEMOGLOBIN. 9.8 g/dL (14.0-18.0); LYMPHOCYTES % 47.7 % (20.0-50.0); MEAN CORPUSCULAR VOLUME 71.6 fL (80.0-94.0); MEAN PLATELET VOLUME 6.7 fl (7.4-10.4); MONOCYTES % 9.9 % (2.0-8.0); NEUTROPHILS % 37.8 % (40.0-76.0); PLATELET 176 x1000/uL (130-400); RED BLOOD CELL COUNT 4.26 mill/uL (4.7-6.1); RED CELL DISTRIBUTION WIDTH 18.9 % (11.6-14.6)
[2022-03-03 21:07] LABS: CHLORIDE 109 mEq/L (98-107)
[2022-03-03 21:34] LABS: ETHANOL BLOOD 345 mg/dL
[2022-03-04 08:36] VITALS: BP 135/84
== END 2022-03-04 08:38 | disposition home or self-care (01) ==
LOC: ER 19:11
DX: F10.229 Alcohol dependence with intoxication, unspecified (principal); Y90.8 Blood alcohol level of 240 mg/100 ml or more; F31.9 Bipolar disorder, unspecified; F20.9 Schizophrenia, unspecified
CPT/HCPCS: 36415; 80053; 80320; 82140; 83690; 85025; 96360; 96361; 99283; J7030; G0480

== ENCOUNTER 2022-05-29 16:25 | Emergency (ER) | payer OTHER, MEDICAID ==
[~2022-05-29] VITALS: Ht 165.1 cm; Wt 64.0 kg
[2022-05-29] MEDS ORDERED: SODIUM CHLORIDE 0.9% 1,000 ML IV ONE (17:00)
[2022-05-29 17:22] LABS: BASOPHILS % 1.3 % (0.0-2.0); EOSINOPHILS % 1.1 % (0.0-5.0); HEMATOCRIT. 31.6 % (42.0-52.0); HEMOGLOBIN. 10.1 g/dL (14.0-18.0); MEAN CORPUSCULAR HEMOGLOBIN 22.3 pg (28.0-32.0); MEAN CORPUSCULAR VOLUME 69.3 fL (80.0-94.0); MEAN PLATELET VOLUME 8.3 fl (7.4-10.4); MONOCYTES % 10.3 % (2.0-8.0); NEUTROPHILS % 43.3 % (40.0-76.0); PLATELET 258 x1000/uL (130-400); RED BLOOD CELL COUNT 4.55 mill/uL (4.7-6.1); RED CELL DISTRIBUTION WIDTH 22.2 % (11.6-14.6)
[2022-05-29 17:31] LABS: CHLORIDE 100 mEq/L (98-107)
[2022-05-29 17:49] LABS: PLATELET ESTIMATE NORMAL
[2022-05-29 18:01] LABS: ETHANOL BLOOD 385 mg/dL
[2022-05-29] MEDS ORDERED: POTASSIUM CHLORIDE 20MEQ TABLET SR PO ONE (18:15)
[2022-05-29] MEDS ORDERED: POTASSIUM CHLORIDE 20MEQ TABLET SR PO NR (23:45)
[2022-05-30 01:01] LABS: *AMPHETAMINES SCREEN URINE NEGATIVE (NEGATIVE); *BARBITURATES SCREEN URINE NEGATIVE (NEGATIVE); *BENZODIAZEPINES SCREEN URINE NEGATIVE (NEGATIVE); *COCAINE SCREEN URINE NEGATIVE (NEGATIVE); CANNABINOID URINE SCREEN NEGATIVE (NEGATIVE); METHADONE URINE SCREEN NEGATIVE (NEGATIVE); OPIATES URINE SCREEN NEGATIVE (NEGATIVE); PHENCYCLIDINE URINE SCREEN NEGATIVE (NEGATIVE)
[2022-05-30] MEDS: FOLIC ACID/VITAMIN B COMP W-C TABLET PO SCH (09:52)
[2022-05-30] MEDS: MULTIVITAMINS,THER W-MINERALS TABLET PO SCH (09:52)
[2022-05-30] MEDS: FLUOXETINE HCL 20MG CAPSULE PO SCH (09:52)
[2022-05-30] MEDS: GABAPENTIN 300MG CAPSULE PO SCH ×2 (15:02→22:08)
[2022-05-30] MEDS ORDERED: QUETIAPINE FUMARATE 50MG TABLET PO SCH (21:00)
[2022-05-31] MEDS: GABAPENTIN 300MG CAPSULE PO SCH (06:39)
[2022-05-31 10:00] VITALS: BP 124/86
[2022-05-31] MEDS: FOLIC ACID/VITAMIN B COMP W-C TABLET PO SCH (10:41)
[2022-05-31] MEDS: FLUOXETINE HCL 20MG CAPSULE PO SCH (10:41)
[2022-05-31] MEDS: MULTIVITAMINS,THER W-MINERALS TABLET PO SCH (10:41)
== END 2022-05-31 11:12 | disposition home or self-care (01) ==
LOC: ER 16:25
DX: F10.229 Alcohol dependence with intoxication, unspecified (principal); R55 Syncope and collapse; R45.851 Suicidal ideations; Z20.822 Contact with and (suspected) exposure to COVID-19; Z79.899 Other long term (current) drug therapy; Z86.59 Personal history of other mental and behavioral disorders; Y90.8 Blood alcohol level of 240 mg/100 ml or more
CPT/HCPCS: 36415; 70450; 71045; 73521; 80053; 80305; 80307; 80320; 80329; 84484; 85025; 87426; 93005; 96360; 96361; 99285; C9803; J7030; Z7610; G0480

== ENCOUNTER 2022-06-28 15:44 | Emergency (ER) | payer MEDICAID, OTHER ==
[~2022-06-28] VITALS: Ht 167.6 cm; Wt 64.0 kg
[2022-06-28 16:13] LABS: CLARITY URINE CLEAR (CLEAR); COLOR URINE YELLOW (YELLOW); KETONES URINE NEGATIVE (NEGATIVE); LEUKOCYTE ESTERASE URINE NEGATIVE (NEGATIVE); NITRITE URINE NEGATIVE (NEGATIVE); OCCULT BLOOD URINE NEGATIVE (NEGATIVE); PROTEIN URINE NEGATIVE (NEGATIVE); SPECIFIC GRAVITY URINE 1.005 (1.005-1.030); UROBILINOGEN URINE 0.2 E.U./dL (0.2-1.0)
[2022-06-28 16:43] LABS: BASOPHILS % 1.8 % (0.0-2.0); EOSINOPHILS % 1.1 % (0.0-5.0); HEMATOCRIT. 33.4 % (42.0-52.0); HEMOGLOBIN. 10.7 g/dL (14.0-18.0); LYMPHOCYTES % 34.6 % (20.0-50.0); MEAN CORPUSCULAR HEMOGLOBIN 23.3 pg (28.0-32.0); MEAN CORPUSCULAR VOLUME 72.5 fL (80.0-94.0); MEAN PLATELET VOLUME 6.9 fl (7.4-10.4); MONOCYTES % 13.7 % (2.0-8.0); NEUTROPHILS % 48.8 % (40.0-76.0); PLATELET 273 x1000/uL (130-400); RED BLOOD CELL COUNT 4.61 mill/uL (4.7-6.1); RED CELL DISTRIBUTION WIDTH 22.5 % (11.6-14.6)
[2022-06-28 16:44] LABS: *AMPHETAMINES SCREEN URINE NEGATIVE (NEGATIVE); *BARBITURATES SCREEN URINE NEGATIVE (NEGATIVE); *BENZODIAZEPINES SCREEN URINE NEGATIVE (NEGATIVE); *COCAINE SCREEN URINE NEGATIVE (NEGATIVE); CANNABINOID URINE SCREEN NEGATIVE (NEGATIVE); METHADONE URINE SCREEN NEGATIVE (NEGATIVE); OPIATES URINE SCREEN NEGATIVE (NEGATIVE); PHENCYCLIDINE URINE SCREEN NEGATIVE (NEGATIVE)
[2022-06-28 16:53] LABS: CHLORIDE 108 mEq/L (98-107)
[2022-06-28 17:18] LABS: ETHANOL BLOOD 439 mg/dL
[2022-06-28 17:33] LABS: PLATELET ESTIMATE NORMAL
[2022-06-29 10:18] VITALS: BP 163/93
== END 2022-06-29 10:20 | disposition home or self-care (01) ==
LOC: ER 15:44
DX: F10.229 Alcohol dependence with intoxication, unspecified (principal); Y90.8 Blood alcohol level of 240 mg/100 ml or more; R45.851 Suicidal ideations; D64.9 Anemia, unspecified; D72.819 Decreased white blood cell count, unspecified; Z20.822 Contact with and (suspected) exposure to COVID-19; F31.9 Bipolar disorder, unspecified; F20.9 Schizophrenia, unspecified; F12.10 Cannabis abuse, uncomplicated; Z79.899 Other long term (current) drug therapy
CPT/HCPCS: 36415; 80053; 80305; 80307; 80320; 81003; 84443; 85025; 87426; 99285; C9803; G0480

== ENCOUNTER 2022-07-31 21:03 | Emergency (ER) | payer OTHER ==
[~2022-07-31] VITALS: Ht 180.3 cm; Wt 80.0 kg
[2022-07-31 21:08] VITALS: BP 163/82
[2022-08-01] MEDS ORDERED: ACETAMINOPHEN 500MG TABLET PO ONE (00:45)
[2022-08-01 01:45] LABS: CHLORIDE 108 mEq/L (98-107)
[2022-08-01] MEDS ORDERED: ACET-2708 MT (02:07)
[2022-08-01 02:12] LABS: BASOPHILS % 1.5 % (0.0-2.0); EOSINOPHILS % 1.6 % (0.0-5.0); HEMATOCRIT. 34.7 % (42.0-52.0); HEMOGLOBIN. 11.4 g/dL (14.0-18.0); LYMPHOCYTES % 47.4 % (20.0-50.0); MEAN CORPUSCULAR HEMOGLOBIN 24.3 pg (28.0-32.0); MEAN CORPUSCULAR VOLUME 74.2 fL (80.0-94.0); MEAN PLATELET VOLUME 7.1 fl (7.4-10.4); MONOCYTES % 11.3 % (2.0-8.0); NEUTROPHILS % 38.2 % (40.0-76.0); PLATELET 260 x1000/uL (130-400); RED BLOOD CELL COUNT 4.67 mill/uL (4.7-6.1); RED CELL DISTRIBUTION WIDTH 22.5 % (11.6-14.6)
== END 2022-08-01 02:43 | disposition home or self-care (01) ==
LOC: ER 21:03
DX: R25.2 Cramp and spasm (principal); I10 Essential (primary) hypertension; Z59.00 Homelessness unspecified; F20.9 Schizophrenia, unspecified; F31.9 Bipolar disorder, unspecified; F10.20 Alcohol dependence, uncomplicated; Y90.9 Presence of alcohol in blood, level not specified; Z79.899 Other long term (current) drug therapy; Z88.2 Allergy status to sulfonamides
CPT/HCPCS: 36415; 80048; 85025; 99283

== ENCOUNTER 2022-08-18 12:41 | Emergency (ER) | payer OTHER ==
[~2022-08-18] VITALS: Ht 175.3 cm; Wt 68.0 kg
[~2022-08-18 12:41] MED LIST changes: +ACET-2708 MT
[2022-08-18 12:46] VITALS: BP 131/87
[2022-08-18 14:22] LABS: BASOPHILS % 1.8 % (0.0-2.0); EOSINOPHILS % 0.6 % (0.0-5.0); HEMATOCRIT. 34.5 % (42.0-52.0); MEAN CORPUSCULAR HEMOGLOBIN 23.5 pg (28.0-32.0); MEAN CORPUSCULAR VOLUME 73.7 fL (80.0-94.0); MEAN PLATELET VOLUME 8.4 fl (7.4-10.4); MONOCYTES % 12.6 % (2.0-8.0); PLATELET 160 x1000/uL (130-400); RED BLOOD CELL COUNT 4.68 mill/uL (4.7-6.1); RED CELL DISTRIBUTION WIDTH 21.3 % (11.6-14.6)
[2022-08-18 14:28] LABS: *AMPHETAMINES SCREEN URINE NEGATIVE (NEGATIVE); *BARBITURATES SCREEN URINE NEGATIVE (NEGATIVE); *BENZODIAZEPINES SCREEN URINE NEGATIVE (NEGATIVE); *COCAINE SCREEN URINE NEGATIVE (NEGATIVE); CANNABINOID URINE SCREEN NEGATIVE (NEGATIVE); METHADONE URINE SCREEN NEGATIVE (NEGATIVE); OPIATES URINE SCREEN NEGATIVE (NEGATIVE); PHENCYCLIDINE URINE SCREEN NEGATIVE (NEGATIVE)
[2022-08-18 14:30] LABS: CHLORIDE 109 mEq/L (98-107)
[2022-08-18 14:45] LABS: ETHANOL BLOOD 442 mg/dL
== END 2022-08-18 17:56 | disposition home or self-care (01) ==
LOC: ER 12:41
DX: T51.0X1A Toxic effect of ethanol, accidental (unintentional), initial encounter (principal); F10.229 Alcohol dependence with intoxication, unspecified; G92.8 Other toxic encephalopathy; R03.0 Elevated blood-pressure reading, without diagnosis of hypertension; Y90.8 Blood alcohol level of 240 mg/100 ml or more; R51.9 Headache, unspecified; Z91.81 History of falling; Y92.480 Sidewalk as the place of occurrence of the external cause; Z88.2 Allergy status to sulfonamides
CPT/HCPCS: 36415; 80053; 80305; 80320; 82962; 85025; 99283; G0480

== ENCOUNTER 2022-08-25 22:46 | Emergency (ER) | payer OTHER ==
[~2022-08-25] VITALS: Ht 172.7 cm; Wt 69.0 kg
[2022-08-25 22:48] VITALS: BP 143/91
== END 2022-08-26 08:38 | disposition left against medical advice (07) ==
LOC: ER 22:46
DX: F10.129 Alcohol abuse with intoxication, unspecified (principal); Y90.9 Presence of alcohol in blood, level not specified
CPT/HCPCS: 99281

== ENCOUNTER 2022-09-11 22:17 | Emergency (ER) | payer OTHER ==
[~2022-09-11] VITALS: Ht 172.7 cm; Wt 75.0 kg
[2022-09-12] MEDS ORDERED: KETOROLAC 60MG/2ML VIAL IM ONE (04:30)
[2022-09-12] MEDS ORDERED: TOPUD MT (06:23)
[2022-09-12] MEDS ORDERED: IBUP-1523 MT (06:23)
[2022-09-12 07:16] VITALS: BP 138/83
== END 2022-09-12 07:19 | disposition home or self-care (01) ==
LOC: ER 22:30
DX: R10.9 Unspecified abdominal pain (principal); Z86.59 Personal history of other mental and behavioral disorders; Z79.899 Other long term (current) drug therapy; Z79.82 Long term (current) use of aspirin; W11.XXXA Fall on and from ladder, initial encounter; Y93.89 Activity, other specified; Y92.89 Other specified places as the place of occurrence of the external cause; Y99.8 Other external cause status
CPT/HCPCS: 71101; 96372; 99283; J1885

== ENCOUNTER 2022-09-13 21:01 | Emergency (ER) | payer OTHER ==
[~2022-09-13] VITALS: Ht 172.7 cm; Wt 72.0 kg
[~2022-09-13 21:01] MED LIST changes: +IBUP-1523 MT
[2022-09-13] MEDS ORDERED: KETOROLAC 60MG/2ML VIAL IM STA (21:21)
[2022-09-13 22:06] LABS: CHLORIDE 106 mEq/L (98-107)
[2022-09-13 22:07] LABS: BASOPHILS % 0.7 % (0.0-2.0); EOSINOPHILS % 1.6 % (0.0-5.0); HEMATOCRIT. 31.8 % (42.0-52.0); HEMOGLOBIN. 10.3 g/dL (14.0-18.0); LYMPHOCYTES % 32.9 % (20.0-50.0); MEAN CORPUSCULAR HEMOGLOBIN 24.6 pg (28.0-32.0); MEAN PLATELET VOLUME 6.7 fl (7.4-10.4); MONOCYTES % 10.9 % (2.0-8.0); NEUTROPHILS % 53.9 % (40.0-76.0); PLATELET 212 x1000/uL (130-400); RED BLOOD CELL COUNT 4.18 mill/uL (4.7-6.1); RED CELL DISTRIBUTION WIDTH 20.9 % (11.6-14.6)
[2022-09-13 22:17] LABS: ETHANOL BLOOD 393 mg/dL
[2022-09-14 05:30] VITALS: BP 134/68
== END 2022-09-14 05:34 | disposition home or self-care (01) ==
LOC: ER 21:25
DX: F10.20 Alcohol dependence, uncomplicated (principal); Y90.8 Blood alcohol level of 240 mg/100 ml or more; R07.81 Pleurodynia; F10.229 Alcohol dependence with intoxication, unspecified; F20.9 Schizophrenia, unspecified
CPT/HCPCS: 36415; 71045; 80053; 80320; 85025; 96372; 99284; J1885; Z7610; G0480

== ENCOUNTER 2022-10-04 18:53 | Emergency (ER) | payer OTHER ==
[~2022-10-04] VITALS: Ht 177.8 cm; Wt 73.0 kg
[2022-10-04 21:04] LABS: HEMATOCRIT. 34.7 % (42.0-52.0); HEMOGLOBIN. 11.1 g/dL (14.0-18.0); MEAN CORPUSCULAR HEMOGLOBIN 24.8 pg (28.0-32.0); MEAN CORPUSCULAR VOLUME 77.4 fL (80.0-94.0); MEAN PLATELET VOLUME 6.8 fl (7.4-10.4); PLATELET 213 x1000/uL (130-400); RED BLOOD CELL COUNT 4.48 mill/uL (4.7-6.1); RED CELL DISTRIBUTION WIDTH 20.9 % (11.6-14.6)
[2022-10-04 21:13] LABS: CHLORIDE 108 mEq/L (98-107)
[2022-10-04 21:28] LABS: PLATELET ESTIMATE NORMAL
[2022-10-04 21:36] LABS: ETHANOL BLOOD 335 mg/dL
[2022-10-05 00:18] LABS: *AMPHETAMINES SCREEN URINE NEGATIVE (NEGATIVE); *BARBITURATES SCREEN URINE NEGATIVE (NEGATIVE); *BENZODIAZEPINES SCREEN URINE NEGATIVE (NEGATIVE); *COCAINE SCREEN URINE NEGATIVE (NEGATIVE); CANNABINOID URINE SCREEN NEGATIVE (NEGATIVE); METHADONE URINE SCREEN NEGATIVE (NEGATIVE); OPIATES URINE SCREEN NEGATIVE (NEGATIVE); PHENCYCLIDINE URINE SCREEN NEGATIVE (NEGATIVE)
[2022-10-05 00:21] LABS: CLARITY URINE CLEAR (CLEAR); COLOR URINE YELLOW (YELLOW); KETONES URINE NEGATIVE (NEGATIVE); LEUKOCYTE ESTERASE URINE NEGATIVE (NEGATIVE); NITRITE URINE NEGATIVE (NEGATIVE); OCCULT BLOOD URINE NEGATIVE (NEGATIVE); PROTEIN URINE TRACE (NEGATIVE); SPECIFIC GRAVITY URINE 1.012 (1.005-1.030); UROBILINOGEN URINE 0.2 E.U./dL (0.2-1.0)
[2022-10-05 10:10] VITALS: BP 155/79
== END 2022-10-05 10:50 | disposition home or self-care (01) ==
LOC: ER 18:53
DX: R07.89 Other chest pain (principal); F10.229 Alcohol dependence with intoxication, unspecified; I10 Essential (primary) hypertension; F20.9 Schizophrenia, unspecified; Y90.8 Blood alcohol level of 240 mg/100 ml or more
CPT/HCPCS: 36415; 71045; 80053; 80305; 80307; 80320; 80329; 81003; 84484; 85025; 93005; 99285; G0480

== ENCOUNTER 2022-10-12 23:20 | Emergency (ER) | payer OTHER ==
[~2022-10-12] VITALS: Ht 172.7 cm; Wt 63.0 kg
[2022-10-12 23:27] VITALS: BP 114/76
== END 2022-10-13 06:27 | disposition left against medical advice (07) ==
LOC: ER 23:20
DX: Z53.21 Procedure and treatment not carried out due to patient leaving prior to being seen by health care provider (principal)
CPT/HCPCS: 99281

== ENCOUNTER 2022-10-21 00:37 | Emergency (ER) | payer OTHER ==
[~2022-10-21] VITALS: Ht 177.8 cm; Wt 81.0 kg
[2022-10-21 00:42] VITALS: BP 146/82
[2022-10-21 02:46] LABS: HEMATOCRIT. 32.1 % (42.0-52.0); HEMOGLOBIN. 10.2 g/dL (14.0-18.0); MEAN CORPUSCULAR HEMOGLOBIN 24.5 pg (28.0-32.0); MEAN CORPUSCULAR VOLUME 77.3 fL (80.0-94.0); MEAN PLATELET VOLUME 6.8 fl (7.4-10.4); PLATELET 177 x1000/uL (130-400); RED BLOOD CELL COUNT 4.16 mill/uL (4.7-6.1); RED CELL DISTRIBUTION WIDTH 20.7 % (11.6-14.6)
[2022-10-21 03:01] LABS: CHLORIDE 111 mEq/L (98-107)
[2022-10-21 03:37] LABS: ETHANOL BLOOD 434 mg/dL
[2022-10-21 05:53] LABS: PLATELET ESTIMATE NORMAL
== END 2022-10-21 07:36 | disposition left against medical advice (07) ==
LOC: ER 00:37
DX: T51.91XA Toxic effect of unspecified alcohol, accidental (unintentional), initial encounter (principal); R51.9 Headache, unspecified; I10 Essential (primary) hypertension; F20.9 Schizophrenia, unspecified; Z88.8 Allergy status to other drugs, medicaments and biological substances; Y92.89 Other specified places as the place of occurrence of the external cause
CPT/HCPCS: 36415; 80053; 80320; 85025; 99291; G0480

== ENCOUNTER 2022-10-23 22:20 | Emergency (ER) | payer OTHER ==
[~2022-10-23] VITALS: Ht 177.8 cm; Wt 80.0 kg
[2022-10-23 22:22] VITALS: BP 144/93
[2022-10-23 23:10] LABS: BASOPHILS % 3.7 % (0.0-2.0); HEMATOCRIT. 33.6 % (42.0-52.0); HEMOGLOBIN. 10.9 g/dL (14.0-18.0); LYMPHOCYTES % 43.3 % (20.0-50.0); MEAN CORPUSCULAR HEMOGLOBIN 24.8 pg (28.0-32.0); MEAN CORPUSCULAR VOLUME 76.7 fL (80.0-94.0); MEAN PLATELET VOLUME 6.7 fl (7.4-10.4); MONOCYTES % 11.9 % (2.0-8.0); NEUTROPHILS % 40.1 % (40.0-76.0); PLATELET 166 x1000/uL (130-400); RED BLOOD CELL COUNT 4.38 mill/uL (4.7-6.1)
[2022-10-23 23:19] LABS: CHLORIDE 111 mEq/L (98-107)
[2022-10-23 23:32] LABS: ETHANOL BLOOD 507 mg/dL
[2022-10-24 18:56] LABS: *AMPHETAMINES SCREEN URINE NEGATIVE (NEGATIVE); *BARBITURATES SCREEN URINE NEGATIVE (NEGATIVE); *BENZODIAZEPINES SCREEN URINE NEGATIVE (NEGATIVE); *COCAINE SCREEN URINE NEGATIVE (NEGATIVE); CANNABINOID URINE SCREEN NEGATIVE (NEGATIVE); METHADONE URINE SCREEN NEGATIVE (NEGATIVE); OPIATES URINE SCREEN NEGATIVE (NEGATIVE); PHENCYCLIDINE URINE SCREEN NEGATIVE (NEGATIVE)
== END 2022-10-24 05:51 | disposition home or self-care (01) ==
LOC: ER 22:20
DX: F10.129 Alcohol abuse with intoxication, unspecified (principal); I10 Essential (primary) hypertension; Z88.2 Allergy status to sulfonamides; Z79.899 Other long term (current) drug therapy; Z86.59 Personal history of other mental and behavioral disorders; Y90.8 Blood alcohol level of 240 mg/100 ml or more
CPT/HCPCS: 36415; 80053; 80305; 80320; 85025; 99283; G0480

== ENCOUNTER 2022-10-24 18:14 | Emergency (ER) | payer OTHER ==
[~2022-10-24] VITALS: Ht 182.9 cm; Wt 73.0 kg
[2022-10-24] MEDS ORDERED: ACETAMINOPHEN 325MG TABLET PO NR (22:15)
[2022-10-24 22:51] LABS: HEMATOCRIT. 34.5 % (42.0-52.0); MEAN CORPUSCULAR HEMOGLOBIN 24.7 pg (28.0-32.0); MEAN CORPUSCULAR VOLUME 77.3 fL (80.0-94.0); MEAN PLATELET VOLUME 6.8 fl (7.4-10.4); PLATELET 147 x1000/uL (130-400); RED BLOOD CELL COUNT 4.46 mill/uL (4.7-6.1)
[2022-10-24 22:56] LABS: CHLORIDE 111 mEq/L (98-107)
[2022-10-24 23:07] LABS: ETHANOL BLOOD 397 mg/dL
[2022-10-24 23:11] LABS: PLATELET ESTIMATE NORMAL
[2022-10-25 05:28] VITALS: BP 125/77
== END 2022-10-25 05:30 | disposition home or self-care (01) ==
LOC: ER 18:14
DX: F10.129 Alcohol abuse with intoxication, unspecified (principal); I10 Essential (primary) hypertension; Z88.2 Allergy status to sulfonamides; Z79.899 Other long term (current) drug therapy; Z86.59 Personal history of other mental and behavioral disorders; Y90.8 Blood alcohol level of 240 mg/100 ml or more
CPT/HCPCS: 36415; 80053; 80320; 85025; 99285; G0480

== ENCOUNTER 2022-10-29 20:36 | Emergency (ER) | payer OTHER ==
[2022-10-30 01:00] VITALS: BP 113/71
== END 2022-10-30 08:05 | disposition home or self-care (01) ==
LOC: ER 20:36
DX: H10.212 Acute toxic conjunctivitis, left eye (principal); F10.20 Alcohol dependence, uncomplicated; R07.81 Pleurodynia; M25.512 Pain in left shoulder; G89.29 Other chronic pain; I10 Essential (primary) hypertension; F20.9 Schizophrenia, unspecified; Z88.8 Allergy status to other drugs, medicaments and biological substances; Z79.82 Long term (current) use of aspirin; Y90.9 Presence of alcohol in blood, level not specified
CPT/HCPCS: 99283

== ENCOUNTER 2022-12-05 23:25 | Emergency (ER) | payer OTHER ==
[~2022-12-05] VITALS: Ht 170.2 cm; Wt 68.0 kg
[2022-12-05 23:32] VITALS: BP 156/84; PULSE 84; RESP 16; TEMP 97.9; O2SAT 98
== END 2022-12-06 08:34 | disposition home or self-care (01) ==
LOC: ER 23:55
DX: T51.0X1A Toxic effect of ethanol, accidental (unintentional), initial encounter (principal); I10 Essential (primary) hypertension; Z88.2 Allergy status to sulfonamides; Z79.899 Other long term (current) drug therapy; Z86.59 Personal history of other mental and behavioral disorders; Y92.9 Unspecified place or not applicable
CPT/HCPCS: 99283

== ENCOUNTER 2023-01-12 23:07 | Emergency (ER) | payer OTHER ==
[~2023-01-12] VITALS: Ht 172.7 cm; Wt 73.0 kg
[2023-01-12 23:16] VITALS: BP 133/82; PULSE 70; RESP 18; TEMP 97.9; O2SAT 99
[2023-01-12] MEDS ORDERED: FLUT9.9S BOTHNSTRLS (23:59)
== END 2023-01-13 01:04 | disposition home or self-care (01) ==
LOC: ER 23:07
DX: R09.81 Nasal congestion (principal); I10 Essential (primary) hypertension; F20.9 Schizophrenia, unspecified; F10.20 Alcohol dependence, uncomplicated; R56.9 Unspecified convulsions; Z88.2 Allergy status to sulfonamides; Z88.8 Allergy status to other drugs, medicaments and biological substances; Y90.9 Presence of alcohol in blood, level not specified; Z79.899 Other long term (current) drug therapy
CPT/HCPCS: 99283

== ENCOUNTER 2023-02-12 14:11 | Emergency (ER) | payer OTHER ==
[~2023-02-12] VITALS: Ht 182.9 cm; Wt 78.0 kg
[~2023-02-12 14:11] MED LIST changes: +FLUT9.9S BOTHNSTRLS
[2023-02-12 14:26] VITALS: BP 153/86; PULSE 79; RESP 16; TEMP 98.2; O2SAT 98
== END 2023-02-12 14:55 | disposition home or self-care (01) ==
LOC: ER 14:50
DX: R04.0 Epistaxis (principal); I10 Essential (primary) hypertension; Z88.2 Allergy status to sulfonamides; Z79.899 Other long term (current) drug therapy; Z86.59 Personal history of other mental and behavioral disorders
CPT/HCPCS: 99283

== ENCOUNTER 2023-04-20 17:14 | Emergency (ER) | payer OTHER ==
[~2023-04-20] VITALS: Ht 172.7 cm; Wt 75.0 kg
[2023-04-20 17:30] VITALS: BP 110/62; PULSE 89; RESP 16; TEMP 98.6; O2SAT 99
[2023-04-20] MEDS ORDERED: ERYT1OIN6 LEFTEYE (18:01)
== END 2023-04-20 18:20 | disposition home or self-care (01) ==
LOC: ER 17:14
DX: H10.9 Unspecified conjunctivitis (principal); F10.229 Alcohol dependence with intoxication, unspecified; I10 Essential (primary) hypertension; F20.9 Schizophrenia, unspecified; Z79.899 Other long term (current) drug therapy
CPT/HCPCS: 99283

== ENCOUNTER 2023-05-23 21:52 | Emergency (ER) | payer OTHER ==
[~2023-05-23] VITALS: Ht 172.7 cm; Wt 70.0 kg
[~2023-05-23 21:52] MED LIST changes: +ERYT1OIN6 LEFTEYE
[2023-05-23 21:55] VITALS: BP 134/60; PULSE 84; RESP 16; TEMP 98.4; O2SAT 99
[2023-05-24 01:01] LABS: CLARITY URINE CLEAR (CLEAR); COLOR URINE YELLOW (YELLOW); GLUCOSE URINE NEGATIVE (NEGATIVE); KETONES URINE NEGATIVE (NEGATIVE); LEUKOCYTE ESTERASE URINE NEGATIVE (NEGATIVE); NITRITE URINE NEGATIVE (NEGATIVE); OCCULT BLOOD URINE NEGATIVE (NEGATIVE); PH URINE 5.5 (4.5-8.0); PROTEIN URINE NEGATIVE (NEGATIVE); SPECIFIC GRAVITY URINE 1.005 (1.005-1.030); UROBILINOGEN URINE 0.2 E.U./dL (0.2-1.0)
== END 2023-05-24 00:08 | disposition home or self-care (01) ==
LOC: ER 21:52
DX: M79.606 Pain in leg, unspecified (principal); R30.0 Dysuria; I10 Essential (primary) hypertension; F20.9 Schizophrenia, unspecified; Z79.899 Other long term (current) drug therapy; F10.20 Alcohol dependence, uncomplicated
CPT/HCPCS: 81003; 99283

== ENCOUNTER 2023-06-02 19:24 | Emergency (ER) | payer OTHER ==
[~2023-06-02] VITALS: Ht 177.8 cm; Wt 73.0 kg
[2023-06-02 19:30] VITALS: TEMP 97.4; O2SAT 98
[2023-06-02] MEDS ORDERED: KETOROLAC 30MG/ML VIAL IM ONE (20:15)
[2023-06-02] MEDS ORDERED: NAPR-1176 MT (21:55)
[2023-06-02] MEDS ORDERED: LIDO700A15 TP (21:55)
[2023-06-02] MEDS ORDERED: KETOROLAC 30MG/ML VIAL IM NR (23:15)
[2023-06-02 23:19] VITALS: BP 127/86; PULSE 83; RESP 16
== END 2023-06-02 23:30 | disposition home or self-care (01) ==
LOC: ER 19:24
DX: M54.50 Low back pain, unspecified (principal); I10 Essential (primary) hypertension; F20.9 Schizophrenia, unspecified; F10.229 Alcohol dependence with intoxication, unspecified; Y90.0 Blood alcohol level of less than 20 mg/100 ml
CPT/HCPCS: 99283; 96372; J1885

== ENCOUNTER 2023-06-28 16:29 | Emergency (ER) | payer OTHER ==
[~2023-06-28] VITALS: Ht 185.4 cm; Wt 77.5 kg
[~2023-06-28 16:29] MED LIST changes: +LIDO700A15 TP; +NAPR-1176 MT
[2023-06-28 16:44] VITALS: BP 155/81; PULSE 83; RESP 16; TEMP 98.3; O2SAT 97
== END 2023-06-28 16:56 | disposition home or self-care (01) ==
LOC: ER 16:29
DX: S89.91XA Unspecified injury of right lower leg, initial encounter (principal); I10 Essential (primary) hypertension; Z88.2 Allergy status to sulfonamides; Z79.899 Other long term (current) drug therapy; Z86.59 Personal history of other mental and behavioral disorders; W01.0XXA Fall on same level from slipping, tripping and stumbling without subsequent striking against object, initial encounter; Y93.89 Activity, other specified; Y92.89 Other specified places as the place of occurrence of the external cause; Y99.8 Other external cause status
CPT/HCPCS: 73560; 99283

== ENCOUNTER 2023-07-11 19:20 | Emergency (ER) | payer OTHER ==
[~2023-07-11] VITALS: Ht 172.7 cm; Wt 72.0 kg
[2023-07-11] MEDS ORDERED: IBUP-2029 MT (19:37)
[2023-07-11 19:38] VITALS: BP 120/78; PULSE 84; RESP 16; TEMP 98.1; O2SAT 96
[2023-07-11] MEDS ORDERED: IBUPROFEN 600MG TABLET PO ONE (19:45)
== END 2023-07-11 19:56 | disposition home or self-care (01) ==
LOC: ER 19:20
DX: M25.561 Pain in right knee (principal); G89.29 Other chronic pain; I10 Essential (primary) hypertension; F20.9 Schizophrenia, unspecified; F10.229 Alcohol dependence with intoxication, unspecified; Z79.899 Other long term (current) drug therapy; Y90.0 Blood alcohol level of less than 20 mg/100 ml
CPT/HCPCS: 99283

== ENCOUNTER 2023-07-22 19:33 | Emergency (ER) | payer MEDICAID, OTHER ==
[~2023-07-22] VITALS: Ht 172.7 cm; Wt 66.0 kg
[~2023-07-22 19:33] MED LIST changes: +IBUP-2029 MT
[2023-07-22 19:40] VITALS: BP 124/71; O2SAT 100
[2023-07-22 20:55] LABS: BASOPHILS % 1.7 % (0.0-2.0); EOSINOPHILS % 1.9 % (0.0-5.0); HEMATOCRIT. 31.6 % (42.0-52.0); HEMOGLOBIN. 10.2 g/dL (14.0-18.0); LYMPHOCYTES % 37.8 % (20.0-50.0); MEAN CORPUSCULAR HEMOGLOBIN 23.2 pg (28.0-32.0); MEAN CORPUSCULAR HGB CONC 32.4 g/dL (31.0-37.0); MEAN CORPUSCULAR VOLUME 71.7 fL (80.0-94.0); MEAN PLATELET VOLUME 6.8 fl (7.4-10.4); MONOCYTES % 10.9 % (2.0-8.0); NEUTROPHILS % 47.7 % (40.0-76.0); PLATELET 279 x1000/uL (130-400); RED BLOOD CELL COUNT 4.41 mill/uL (4.7-6.1); RED CELL DISTRIBUTION WIDTH 22.4 % (11.6-14.6)
[2023-07-22 20:59] LABS: ADD RBC MORPHOLOGY YES; DIFFERENTIAL COMMENT 1
[2023-07-22] MEDS ORDERED: ACETAMINOPHEN 325MG TABLET PO ONE (21:00)
[2023-07-22 21:11] LABS: ALANINE AMINOTRANSFERASE 50 IU/L (10-49); ALBUMIN 4.3 g/dL (3.2-4.8); ASPARTATE AMINOTRANSFERASE 74 IU/L (<34); BILIRUBIN TOTAL 0.3 mg/dL (0.1-1.0); CALCIUM 8.8 mg/dL (8.7-10.4); CARBON DIOXIDE 26 mEq/L (21-32); CHLORIDE 102 mEq/L (98-107); CREATININE 0.8 mg/dL (0.6-1.3); GLUCOSE 88 mg/dL (70-105); POTASSIUM 3.8 mEq/L (3.5-5.1); SODIUM 135 mEq/L (136-145); UREA NITROGEN BLOOD 10 mg/dL (9-23)
[2023-07-22 21:42] LABS: ANISOCYTOSIS 2+; HYPOCHROMASIA 1+; MICROCYTOSIS 2+; PLATELET ESTIMATE NORMAL
[2023-07-22] MEDS: ACETAMINOPHEN 325MG TABLET PO NR (23:12)
[2023-07-23] MEDS ORDERED: CEPH500T MT (00:49)
[2023-07-23 02:04] VITALS: PULSE 62; RESP 15; TEMP 98
== END 2023-07-23 02:05 | disposition home or self-care (01) ==
LOC: ER 19:33
DX: L03.113 Cellulitis of right upper limb (principal); I10 Essential (primary) hypertension; F20.9 Schizophrenia, unspecified; F10.20 Alcohol dependence, uncomplicated; Z88.2 Allergy status to sulfonamides; Y90.9 Presence of alcohol in blood, level not specified
CPT/HCPCS: 36415; 73130; 80053; 85025; 99284

== ENCOUNTER 2023-07-29 18:34 | Emergency (ER) | payer MEDICAID ==
[~2023-07-29] VITALS: Ht 167.6 cm; Wt 75.0 kg
[~2023-07-29 18:34] MED LIST changes: +CEPH500T MT
[2023-07-29 18:37] VITALS: BP 139/91; PULSE 89; RESP 18; TEMP 98.3; O2SAT 98
[2023-07-29 21:33] LABS: HEMOGLOBIN. 9.5 g/dL (14.0-18.0); MEAN CORPUSCULAR HEMOGLOBIN 22.7 pg (28.0-32.0); MEAN CORPUSCULAR HGB CONC 31.7 g/dL (31.0-37.0); MEAN CORPUSCULAR VOLUME 71.6 fL (80.0-94.0); MEAN PLATELET VOLUME 6.6 fl (7.4-10.4); PLATELET 274 x1000/uL (130-400); RED BLOOD CELL COUNT 4.19 mill/uL (4.7-6.1); RED CELL DISTRIBUTION WIDTH 22.3 % (11.6-14.6); WHITE BLOOD COUNT 4.7 x1000/uL (4.5-11.0)
[2023-07-29 21:36] LABS: DIFFERENTIAL COMMENT 1
[2023-07-29 21:55] LABS: ALANINE AMINOTRANSFERASE 45 IU/L (10-49); ALBUMIN 4.2 g/dL (3.2-4.8); ASPARTATE AMINOTRANSFERASE 54 IU/L (<34); BILIRUBIN TOTAL 0.2 mg/dL (0.1-1.0); CALCIUM 8.7 mg/dL (8.7-10.4); CARBON DIOXIDE 24 mEq/L (21-32); CHLORIDE 106 mEq/L (98-107); CREATININE 0.7 mg/dL (0.6-1.3); ETHANOL BLOOD 384 mg/dL (<10); GLUCOSE 91 mg/dL (70-105); POTASSIUM 4.1 mEq/L (3.5-5.1); PROTEIN TOTAL 7.7 g/dL (6.0-8.3); SODIUM 138 mEq/L (136-145); UREA NITROGEN BLOOD 10 mg/dL (9-23)
[2023-07-29 21:57] LABS: HYPOCHROMASIA 1+; PLATELET ESTIMATE NORMAL
[2023-07-29 21:58] LABS: ANISOCYTOSIS 1+; MICROCYTOSIS 2+
[2023-07-30] MEDS ORDERED: FERR324T4 MT (02:37)
== END 2023-07-30 03:19 | disposition home or self-care (01) ==
LOC: ER 18:34
DX: D64.9 Anemia, unspecified (principal); F10.20 Alcohol dependence, uncomplicated; M25.561 Pain in right knee; M79.89 Other specified soft tissue disorders; I10 Essential (primary) hypertension; R51.9 Headache, unspecified; Z88.2 Allergy status to sulfonamides; Z79.899 Other long term (current) drug therapy; Z86.59 Personal history of other mental and behavioral disorders; Y90.8 Blood alcohol level of 240 mg/100 ml or more
CPT/HCPCS: 36415; 73562; 80053; 80320; 85025; 99284; G0480

== ENCOUNTER 2023-08-07 19:57 | Emergency (ER) | payer MEDICAID ==
[~2023-08-07] VITALS: Ht 182.9 cm; Wt 64.0 kg
[~2023-08-07 19:57] MED LIST changes: +CHLO25CA11 PO; +FERR324T4 MT; -L25 PO
[2023-08-07 20:00] VITALS: BP 157/100; PULSE 69; RESP 16; TEMP 98.2; O2SAT 100
== END 2023-08-08 05:07 | disposition home or self-care (01) ==
LOC: ER 19:57
DX: F10.129 Alcohol abuse with intoxication, unspecified (principal); I10 Essential (primary) hypertension; F20.9 Schizophrenia, unspecified; Z88.2 Allergy status to sulfonamides; Z79.899 Other long term (current) drug therapy; Y90.9 Presence of alcohol in blood, level not specified
CPT/HCPCS: 99283

== ENCOUNTER 2023-08-12 22:02 | Inpatient (IN) | payer OTHER ==
[~2023-08-12] VITALS: Ht 172.7 cm; Wt 59.4 kg
[2023-08-12 22:13] VITALS: O2SAT 97
[2023-08-12 23:02] LABS: CLARITY URINE CLEAR (CLEAR); COLOR URINE YELLOW (YELLOW); GLUCOSE URINE NEGATIVE (NEGATIVE); KETONES URINE NEGATIVE (NEGATIVE); LEUKOCYTE ESTERASE URINE NEGATIVE (NEGATIVE); NITRITE URINE NEGATIVE (NEGATIVE); OCCULT BLOOD URINE NEGATIVE (NEGATIVE); PH URINE 5.5 (4.5-8.0); PROTEIN URINE NEGATIVE (NEGATIVE); SPECIFIC GRAVITY URINE 1.005 (1.005-1.030); UROBILINOGEN URINE 0.2 E.U./dL (0.2-1.0)
[2023-08-12 23:05] LABS: HEMOGLOBIN. 9.2 g/dL (14.0-18.0); MEAN CORPUSCULAR HEMOGLOBIN 22.7 pg (28.0-32.0); MEAN CORPUSCULAR HGB CONC 31.7 g/dL (31.0-37.0); MEAN CORPUSCULAR VOLUME 71.7 fL (80.0-94.0); MEAN PLATELET VOLUME 6.9 fl (7.4-10.4); PLATELET 225 x1000/uL (130-400); RED BLOOD CELL COUNT 4.04 mill/uL (4.7-6.1); RED CELL DISTRIBUTION WIDTH 21.9 % (11.6-14.6); WHITE BLOOD COUNT 4.5 x1000/uL (4.5-11.0)
[2023-08-12 23:10] LABS: DIFFERENTIAL COMMENT 1
[2023-08-12 23:17] LABS: INR 0.9; PROTHROMBIN TIME 10.6 sec (9.6-11.0)
[2023-08-12 23:18] LABS: *AMPHETAMINES SCREEN URINE NEGATIVE (NEGATIVE); *BARBITURATES SCREEN URINE NEGATIVE (NEGATIVE); *BENZODIAZEPINES SCREEN URINE NEGATIVE (NEGATIVE); *COCAINE SCREEN URINE NEGATIVE (NEGATIVE); CANNABINOID URINE SCREEN NEGATIVE (NEGATIVE); ECSTASY MDMA SCREEN URINE NEGATIVE (NEGATIVE); METHADONE URINE SCREEN Neg (NEGATIVE); OPIATES URINE SCREEN NEGATIVE (NEGATIVE); PHENCYCLIDINE URINE SCREEN NEGATIVE (NEGATIVE)
[2023-08-12 23:26] LABS: VITAMIN B12 SERUM 525 pg/mL (211-911)
[2023-08-12 23:30] LABS: ANISOCYTOSIS 2+; HYPOCHROMASIA 1+; MICROCYTOSIS 2+; PLATELET ESTIMATE NORMAL
[2023-08-12 23:33] LABS: ALANINE AMINOTRANSFERASE 31 IU/L (10-49); ALBUMIN 4.8 g/dL (3.2-4.8); ASPARTATE AMINOTRANSFERASE 36 IU/L (<34); BILIRUBIN TOTAL 0.4 mg/dL (0.1-1.0); CALCIUM 8.8 mg/dL (8.7-10.4); CARBON DIOXIDE 28 mEq/L (21-32); CHLORIDE 100 mEq/L (98-107); CREATININE 0.9 mg/dL (0.6-1.3); ETHANOL BLOOD 357 mg/dL (<10); GLUCOSE 103 mg/dL (70-105); IRON 38 ug/dL (65-175); POTASSIUM 3.7 mEq/L (3.5-5.1); PROTEIN TOTAL 8.4 g/dL (6.0-8.3); SODIUM 135 mEq/L (136-145); TOTAL IRON BINDING CAPACITY 291 ug/dl (250-425); TROPONIN I HIGH SENSITIVITY 7 ng/L (3.0-53); UREA NITROGEN BLOOD 7 mg/dL (9-23)
[2023-08-12] MEDS: SODIUM CHLORIDE 0.9% 1,000 ML IV ONE (23:38)
[2023-08-12] MEDS: ONDANSETRON HCL 4MG/2ML INJ IV STA (23:39)
[2023-08-12] MEDS: MORPHINE SULFATE 4 MG/ML CPJ (NOT FOR IM USE) IV STA (23:39)
[2023-08-13] MEDS: PANTOPRAZOLE SODIUM 40 MG/VIAL IV NR (03:41)
[2023-08-13] MEDS: IOHEXOL-300 100 ML BOTTLE ONE (06:37)
[2023-08-13 08:00] VITALS: BP 125/85; PULSE 61; RESP 18; TEMP 97.2
[2023-08-13 10:09] VITALS: BP 132/78; PULSE 78; RESP 18; TEMP 96
[2023-08-13] MEDS ORDERED: DOCUSATE SODIUM 100MG CAPSULE PO PRN (10:45)
[2023-08-13] MEDS ORDERED: IPRATROPIUM/ALBUTEROL 0.5-3(2.5)MG/3ML NEB HHN PRN (10:45)
[2023-08-13] MEDS ORDERED: ONDANSETRON HCL 4MG/2ML INJ IV PRN (10:45)
[2023-08-13] MEDS ORDERED: LORAZEPAM 0.5MG TABLET PO PRN (10:45)
[2023-08-13] MEDS ORDERED: ACETAMINOPHEN 325MG TABLET PO PRN ×2 (10:45)
[2023-08-13] MEDS ORDERED: MAGNESIUM/ALUMINUM HYDROXIDE/SIMETHICONE 30ML UDC PO PRN (10:45)
[2023-08-13] MEDS ORDERED: GUAIFENESIN 200MG/10ML SUGAR FREE UDC PO PRN (10:45)
[2023-08-13 12:00] VITALS: BP 136/83; PULSE 63; RESP 18; TEMP 98.1
[2023-08-13] MEDS: CHLORDIAZEPOXIDE 10MG CAPSULE PO SCH (12:05)
[2023-08-13] MEDS: MVI, ADULT NO.1 10 ML, FOLIC ACID 1 MG, THIAMINE HCL 100 MG in SODIUM CHLORIDE 0.9% 1,0... IV ONE (12:06)
[2023-08-13] MEDS: ENOXAPARIN 40MG/0.4ML SYR SUBCUT SCH (12:06)
[2023-08-13 16:00] VITALS: BP_SYST 132; BP_SYST 136; BP_DIAS 83; BP_DIAS 90; PULSE 63; RESP 18; TEMP 97.8; TEMP 98.1
[2023-08-13 18:00] LABS: IRON 55 ug/dL (65-175); PHOSPHORUS 2.9 mg/dL (2.5-4.9); TOTAL IRON BINDING CAPACITY 234 ug/dl (250-425)
[2023-08-13 18:07] LABS: CREATINE KINASE 158 IU/L (46-171); CREATINE KINASE MB FRACTION 0.9 ng/mL (0.5-3.6); TROPONIN I HIGH SENSITIVITY 7 ng/L (3.0-53)
[2023-08-13 18:24] LABS: FOLIC ACID (FOLATE) SERUM > 48.00 ng/mL (>5.38)
[2023-08-13] MEDS: PANTOPRAZOLE SODIUM 40 MG/VIAL IV SCH (18:45)
[2023-08-13] MEDS: MAGNESIUM 4 G PREMIX 100 ML IV NR (20:24)
[2023-08-13 20:50] VITALS: BP 150/87; PULSE 65; RESP 19; TEMP 97.3
[2023-08-13] MEDS ORDERED: FAMOTIDINE 20MG TABLET PO SCH (21:00)
[2023-08-13] MEDS: SUCRALFATE 1G TABLET PO SCH (21:16)
[2023-08-13] MEDS: ATORVASTATIN CALCIUM 20MG TABLET PO SCH (21:16)
[2023-08-13 21:57] LABS: AMMONIA < 10 uMol/L (<32); LACTATE DEHYDROGENASE 154 IU/L (120-246)
[2023-08-13 22:48] LABS: CREATINE KINASE MB FRACTION 0.7 ng/mL (0.5-3.6)
[2023-08-14] VITALS (7 sets, daily range): BP systolic 122–161; BP diastolic 71–90; PULSE 59–74; RESP 16–19; TEMP 97.3–98
[2023-08-14] MEDS: CLONIDINE 0.1MG TABLET PO PRN (00:02)
[2023-08-14 01:27] LABS: HEMATOCRIT 29.6 % (42.0-52.0); HEMOGLOBIN 9.5 g/dL (14.0-18.0)
[2023-08-14 06:39] LABS: BASOPHILS % 1.3 % (0.0-2.0); EOSINOPHILS % 1.4 % (0.0-5.0); HEMATOCRIT. 31.3 % (42.0-52.0); HEMOGLOBIN. 9.8 g/dL (14.0-18.0); LYMPHOCYTES % 17.8 % (20.0-50.0); MEAN CORPUSCULAR HEMOGLOBIN 23.2 pg (28.0-32.0); MEAN CORPUSCULAR HGB CONC 31.4 g/dL (31.0-37.0); MEAN PLATELET VOLUME 8.5 fl (7.4-10.4); MONOCYTES % 13.1 % (2.0-8.0); NEUTROPHILS % 66.4 % (40.0-76.0); PLATELET 190 x1000/uL (130-400); RED BLOOD CELL COUNT 4.22 mill/uL (4.7-6.1); RED CELL DISTRIBUTION WIDTH 22.1 % (11.6-14.6)
[2023-08-14 06:50] LABS: DIFFERENTIAL COMMENT 1
[2023-08-14 07:10] LABS: ALANINE AMINOTRANSFERASE 32 IU/L (10-49); ALBUMIN 4.2 g/dL (3.2-4.8); ASPARTATE AMINOTRANSFERASE 42 IU/L (<34); BILIRUBIN TOTAL 0.8 mg/dL (0.1-1.0); CALCIUM 8.9 mg/dL (8.7-10.4); CARBON DIOXIDE 24 mEq/L (21-32); CHLORIDE 101 mEq/L (98-107); CHOLESTEROL 224 mg/dL (<200); GLUCOSE 187 mg/dL (70-105); HDL CHOLESTEROL 107 mg/dL (>55); LDL CHOLESTEROL 89 mg/dL (5-100); POTASSIUM 3.8 mEq/L (3.5-5.1); PROTEIN TOTAL 7.6 g/dL (6.0-8.3); SODIUM 135 mEq/L (136-145); T4 FREE 0.91 ng/dL (0.89-1.76); THYROID STIMULATING HORMONE 3.06 uIU/mL (0.55-4.78); TRIGLYCERIDE 81 mg/dL (0-150); UREA NITROGEN BLOOD 8 mg/dL (9-23)
[2023-08-14 08:32] LABS: PHOSPHORUS 2.8 mg/dL (2.5-4.9)
[2023-08-14] MEDS ORDERED: PANTOPRAZOLE SODIUM 40 MG/VIAL IV SCH (09:00)
[2023-08-14 09:10] LABS: FOLATE HEMATOCRIT 30.8 % (37.5-51.0)
[2023-08-14] MEDS: FERROUS SULFATE 325MG TABLET PO SCH (09:11)
[2023-08-14] MEDS: MULTIVITAMINS,THER W-MINERALS TABLET PO SCH (09:12)
[2023-08-14] MEDS: FOLIC ACID 1MG TABLET PO SCH (09:12)
[2023-08-14] MEDS: THIAMINE HCL 100MG TABLET PO SCH (09:12)
[2023-08-14 12:08] LABS: HEMATOCRIT 29.5 % (42.0-52.0); HEMOGLOBIN 9.5 g/dL (14.0-18.0)
[2023-08-14] MEDS: CHLORDIAZEPOXIDE 5 MG CAPSULE PO SCH (12:13)
[2023-08-14] MEDS: DOCUSATE SODIUM 250MG CAPSULE PO NR (12:20)
[2023-08-15] VITALS: BP 131/82; PULSE 62; RESP 20; TEMP 97.8
[2023-08-15 00:32] VITALS: BP 131/82; PULSE 62; RESP 19; TEMP 97.8
[2023-08-15 04:00] VITALS: BP 131/75; PULSE 60; RESP 20; TEMP 98.2
[2023-08-15 06:38] LABS: HEMATOCRIT 29.9 % (42.0-52.0); HEMOGLOBIN 9.4 g/dL (14.0-18.0); MEAN CORPUSCULAR HGB CONC 31.5 g/dL (31.0-37.0); MEAN CORPUSCULAR VOLUME 73.1 fL (80.0-94.0); PLATELET 194 x1000/uL (130-400); RED CELL DISTRIBUTION WIDTH 21.9 % (11.6-14.6)
[2023-08-15 07:09] LABS: ALANINE AMINOTRANSFERASE 27 IU/L (10-49); ALBUMIN 4.1 g/dL (3.2-4.8); ASPARTATE AMINOTRANSFERASE 36 IU/L (<34); BILIRUBIN TOTAL 0.5 mg/dL (0.1-1.0); CALCIUM 8.9 mg/dL (8.7-10.4); CARBON DIOXIDE 26 mEq/L (21-32); CHLORIDE 101 mEq/L (98-107); CREATININE 0.9 mg/dL (0.6-1.3); GLUCOSE 95 mg/dL (70-105); PHOSPHORUS 2.9 mg/dL (2.5-4.9); POTASSIUM 3.9 mEq/L (3.5-5.1); PROTEIN TOTAL 7.5 g/dL (6.0-8.3); SODIUM 134 mEq/L (136-145); UREA NITROGEN BLOOD 9 mg/dL (9-23)
[2023-08-15 13:07] VITALS: BP 131/82; PULSE 64; TEMP 96.5
[2023-08-16 15:10] LABS: FOLATE RBC 896 ng/mL (>498)
== END 2023-08-15 13:55 | disposition home or self-care (01) | DRG 241 ==
LOC: ER 22:02 → 7WST 08-13 04:03
PROVIDERS: ADMIT Internal Medicine; ATTEND Internal Medicine
DX: K29.20 Alcoholic gastritis without bleeding (principal); K76.0 Fatty (change of) liver, not elsewhere classified; D50.9 Iron deficiency anemia, unspecified; I10 Essential (primary) hypertension; F20.9 Schizophrenia, unspecified; J44.9 Chronic obstructive pulmonary disease, unspecified; Z59.00 Homelessness unspecified
CPT/HCPCS: 36415; 74177; 80053; 80061; 80305; 80320; 81003; 82140; 82270; 82550; 82553; 82607; 82746; 82747; 83540; 83550; 83605; 83615; 83735; 84100; 84439; 84443; 84484; 85014; 85018; 85025; 85027; 85044; 86850; 86900; 93005; 93970; 97162; 97166; 99285; C9113; J1650; J2270; J2405; J3411; J3475; J3490; J7030; J7070; Q9967; G0480

== ENCOUNTER 2023-08-29 19:29 | Emergency (ER) | payer OTHER ==
[~2023-08-29] VITALS: Ht 182.9 cm; Wt 74.0 kg
[~2023-08-29 19:29] MED LIST changes: -ACET-2708 MT; -CEPH500T MT; -CHLO25CA11 PO; -ERYT1OIN6 LEFTEYE; -FLUT9.9S BOTHNSTRLS; -IBUP-1523 MT; -IBUP-2029 MT; -LIDO700A15 TP; -NAPR-1176 MT; -NAPR-679 MT; -TOPUD MT; -seroquel; -zoloft
[2023-08-29 19:32] VITALS: O2SAT 94
[2023-08-29] MEDS: IBUPROFEN 600MG TABLET PO ONE (20:36)
[2023-08-29 21:10] LABS: DIFFERENTIAL COMMENT 1; HEMATOCRIT. 29.2 % (42.0-52.0); HEMOGLOBIN. 9.2 g/dL (14.0-18.0); MEAN CORPUSCULAR HEMOGLOBIN 22.9 pg (28.0-32.0); MEAN CORPUSCULAR HGB CONC 31.6 g/dL (31.0-37.0); MEAN CORPUSCULAR VOLUME 72.4 fL (80.0-94.0); MEAN PLATELET VOLUME 6.5 fl (7.4-10.4); PLATELET 265 x1000/uL (130-400); RED BLOOD CELL COUNT 4.04 mill/uL (4.7-6.1); RED CELL DISTRIBUTION WIDTH 21.5 % (11.6-14.6); WHITE BLOOD COUNT 3.7 x1000/uL (4.5-11.0)
[2023-08-29 21:20] LABS: ALANINE AMINOTRANSFERASE 23 IU/L (10-49); ALBUMIN 4.4 g/dL (3.2-4.8); ASPARTATE AMINOTRANSFERASE 38 IU/L (<34); BILIRUBIN TOTAL 0.3 mg/dL (0.1-1.0); CALCIUM 8.4 mg/dL (8.7-10.4); CARBON DIOXIDE 25 mEq/L (21-32); CHLORIDE 106 mEq/L (98-107); CREATININE 0.9 mg/dL (0.6-1.3); GLUCOSE 92 mg/dL (70-105); POTASSIUM 3.7 mEq/L (3.5-5.1); PROTEIN TOTAL 7.3 g/dL (6.0-8.3); SODIUM 142 mEq/L (136-145); UREA NITROGEN BLOOD 8 mg/dL (9-23)
[2023-08-29 21:34] LABS: ANISOCYTOSIS 2+; HYPOCHROMASIA 1+; MICROCYTOSIS 2+; PLATELET ESTIMATE NORMAL
[2023-08-29] MEDS ORDERED: AMOX1TAB16 MT (21:52)
[2023-08-29 21:59] VITALS: BP 156/93; PULSE 72; RESP 20; TEMP 98.7
== END 2023-08-29 21:59 | disposition home or self-care (01) ==
LOC: ER 19:29
DX: L03.113 Cellulitis of right upper limb (principal); F20.9 Schizophrenia, unspecified; F19.90 Other psychoactive substance use, unspecified, uncomplicated; F10.20 Alcohol dependence, uncomplicated; Y90.9 Presence of alcohol in blood, level not specified
CPT/HCPCS: 36415; 73120; 80053; 85025; 99284

== ENCOUNTER 2023-08-29 22:30 | Emergency (ER) | payer OTHER ==
[~2023-08-29] VITALS: Ht 177.8 cm; Wt 82.0 kg
[~2023-08-29 22:30] MED LIST changes: +AMOX1TAB16 MT
[2023-08-29 23:44] VITALS: BP 129/81; PULSE 76; RESP 18; TEMP 98; O2SAT 100
[2023-08-30] MEDS: ACETAMINOPHEN 325MG TABLET PO ONE (04:50)
== END 2023-08-30 05:50 | disposition home or self-care (01) ==
LOC: ER 22:30
DX: M79.662 Pain in left lower leg (principal); M79.661 Pain in right lower leg; I10 Essential (primary) hypertension; F19.90 Other psychoactive substance use, unspecified, uncomplicated; F10.20 Alcohol dependence, uncomplicated; Z88.2 Allergy status to sulfonamides; Y90.9 Presence of alcohol in blood, level not specified
CPT/HCPCS: 93970; 99284

== ENCOUNTER 2023-09-17 17:28 | Emergency (ER) | payer OTHER ==
[~2023-09-17] VITALS: Ht 175.3 cm; Wt 63.0 kg
[2023-09-17 17:31] VITALS: BP 151/94; PULSE 74; RESP 18; TEMP 98.2; O2SAT 100
== END 2023-09-17 21:36 | disposition left against medical advice (07) ==
LOC: ER 17:28
DX: F10.129 Alcohol abuse with intoxication, unspecified (principal); I10 Essential (primary) hypertension; Z88.2 Allergy status to sulfonamides; Z79.899 Other long term (current) drug therapy; Y90.9 Presence of alcohol in blood, level not specified
CPT/HCPCS: 99283

== ENCOUNTER 2023-11-09 17:04 | Emergency (ER) | payer OTHER ==
[~2023-11-09] VITALS: Ht 180.3 cm; Wt 75.0 kg
[2023-11-09 17:12] VITALS: BP 134/89; PULSE 78; RESP 18; TEMP 97.9; O2SAT 100
== END 2023-11-09 21:25 | disposition home or self-care (01) ==
LOC: ER 17:04
DX: F10.129 Alcohol abuse with intoxication, unspecified (principal); E11.9 Type 2 diabetes mellitus without complications; I10 Essential (primary) hypertension; Z79.899 Other long term (current) drug therapy; Y90.9 Presence of alcohol in blood, level not specified
CPT/HCPCS: 99281

== ENCOUNTER 2023-11-12 23:43 | Emergency (ER) | payer OTHER ==
[~2023-11-12] VITALS: Ht 172.7 cm; Wt 67.0 kg
[2023-11-12 23:56] VITALS: O2SAT 99
[2023-11-13] MEDS: SODIUM CHLORIDE 0.9% 1,000 ML IV ONE (00:54)
[2023-11-13] MEDS ORDERED: ENOXAPARIN 40MG/0.4ML SYR SUBCUT SCH (07:15)
[2023-11-13] MEDS ORDERED: CLONIDINE 0.1MG TABLET PO PRN (07:15)
[2023-11-13] MEDS ORDERED: ONDANSETRON HCL 4MG/2ML INJ IV PRN (07:15)
[2023-11-13] MEDS ORDERED: ACETAMINOPHEN 325MG TABLET PO PRN (07:15)
[2023-11-13] MEDS ORDERED: HYDROCODONE/ACETAMINOPHEN 5/325MG TABLET PO PRN (07:15)
[2023-11-13] MEDS ORDERED: OMEPRAZOLE 20MG CAPSULE EXTENDED RELEASE PO SCH (07:50)
[2023-11-13 08:15] LABS: HEMATOCRIT. 30.7 % (42.0-52.0); HEMOGLOBIN. 9.8 g/dL (14.0-18.0); MEAN CORPUSCULAR HEMOGLOBIN 22.2 pg (28.0-32.0); MEAN CORPUSCULAR VOLUME 69.3 fL (80.0-94.0); MEAN PLATELET VOLUME 8.3 fl (7.4-10.4); PLATELET 213 x1000/uL (130-400); RED BLOOD CELL COUNT 4.42 mill/uL (4.7-6.1); RED CELL DISTRIBUTION WIDTH 21.5 % (11.6-14.6); WHITE BLOOD COUNT 2.7 x1000/uL (4.5-11.0)
[2023-11-13 08:19] LABS: CHLORIDE 110 mEq/L (98-107); POTASSIUM 4.2 mEq/L (3.5-5.1); SODIUM 142 mEq/L (136-145)
[2023-11-13 08:20] LABS: CARBON DIOXIDE 23 mEq/L (21-32)
[2023-11-13 08:21] LABS: CALCIUM 8.5 mg/dL (8.7-10.4)
[2023-11-13 08:25] LABS: CREATININE 0.8 mg/dL (0.6-1.3); GLUCOSE 73 mg/dL (70-105); UREA NITROGEN BLOOD 8 mg/dL (9-23)
[2023-11-13 08:27] LABS: ALANINE AMINOTRANSFERASE 61 IU/L (10-49); ALBUMIN 4.4 g/dL (3.2-4.8); ASPARTATE AMINOTRANSFERASE 106 IU/L (<34)
[2023-11-13 08:28] LABS: BILIRUBIN TOTAL 0.4 mg/dL (0.1-1.0); DIFFERENTIAL COMMENT 1; PROTEIN TOTAL 7.5 g/dL (6.0-8.3)
[2023-11-13] MEDS ORDERED: FOLIC ACID 1MG TABLET PO SCH (09:00)
[2023-11-13] MEDS ORDERED: MAGNESIUM/ALUMINUM HYDROXIDE/SIMETHICONE 30ML UDC PO PRN (09:00)
[2023-11-13] MEDS ORDERED: NALOXONE HCL 0.4MG/ML VIAL IV PRN (09:00)
[2023-11-13] MEDS ORDERED: MULTIVITAMINS,THER W-MINERALS TABLET PO SCH (09:00)
[2023-11-13] MEDS ORDERED: THIAMINE HCL 100MG TABLET PO SCH (09:00)
[2023-11-13 10:00] VITALS: BP 140/97; PULSE 70; RESP 16; TEMP 98
[2023-11-13 10:19] LABS: HYPOCHROMASIA 1+; MICROCYTOSIS 2+; PLATELET ESTIMATE NORMAL
[2023-11-13 10:20] LABS: ANISOCYTOSIS 2+
[2023-11-13 10:31] LABS: CLARITY URINE CLEAR (CLEAR); COLOR URINE YELLOW (YELLOW); GLUCOSE URINE NEGATIVE (NEGATIVE); KETONES URINE TRACE (NEGATIVE); LEUKOCYTE ESTERASE URINE NEGATIVE (NEGATIVE); NITRITE URINE NEGATIVE (NEGATIVE); OCCULT BLOOD URINE NEGATIVE (NEGATIVE); PROTEIN URINE TRACE (NEGATIVE); SPECIFIC GRAVITY URINE 1.012 (1.005-1.030); UROBILINOGEN URINE 0.2 E.U./dL (0.2-1.0)
[2023-11-13 10:58] LABS: FINE GRANULAR CASTS URINE 0-5 /lpf; HYALINE CASTS URINE 0-5 /lpf; SQUAMOUS EPITHELIAL CELL URINE 1+ /lpf (RARE/1+)
[2023-11-13 11:00] LABS: MUCUS URINE 1+ /lpf (NONE/TRACE)
[2023-11-13 11:01] LABS: RBC URINE NONE SEEN /hpf (0-2); WBC URINE 0-2 /hpf (0-2)
[2023-11-13 11:02] LABS: BACTERIA URINE TRACE
[2023-11-13 11:22] LABS: *AMPHETAMINES SCREEN URINE NEGATIVE (NEGATIVE); *BARBITURATES SCREEN URINE NEGATIVE (NEGATIVE); *BENZODIAZEPINES SCREEN URINE NEGATIVE (NEGATIVE); *COCAINE SCREEN URINE NEGATIVE (NEGATIVE); METHADONE URINE SCREEN NEGATIVE (NEGATIVE); OPIATES URINE SCREEN NEGATIVE (NEGATIVE); PHENCYCLIDINE URINE SCREEN NEGATIVE (NEGATIVE)
[2023-11-13 11:23] LABS: CANNABINOID URINE SCREEN NEGATIVE (NEGATIVE); ECSTASY MDMA SCREEN URINE NEGATIVE (NEGATIVE)
== END 2023-11-13 10:37 | disposition short-term general hospital (02) ==
LOC: ER 23:43 → CANBEDREQ 11-14 07:24
DX: G92.9 Unspecified toxic encephalopathy (principal); E11.9 Type 2 diabetes mellitus without complications; I10 Essential (primary) hypertension; F10.129 Alcohol abuse with intoxication, unspecified; Z00.00 Encounter for general adult medical examination without abnormal findings; Z88.2 Allergy status to sulfonamides; Y90.8 Blood alcohol level of 240 mg/100 ml or more
CPT/HCPCS: 80320; 36415 ×2; 99285; 80053; 80305; 81003; 85025; 87086; 93970; 96360; 96361; J7030; G0480

== ENCOUNTER 2023-11-20 14:21 | Emergency (ER) | payer OTHER ==
[~2023-11-20] VITALS: Ht 170.2 cm; Wt 70.0 kg
[2023-11-20 14:24] VITALS: O2SAT 96
[2023-11-20 16:19] VITALS: BP 136/83; PULSE 85; RESP 15; TEMP 98.9
== END 2023-11-20 16:23 | disposition home or self-care (01) ==
LOC: ER 14:33
DX: S09.90XA Unspecified injury of head, initial encounter (principal); I10 Essential (primary) hypertension; E11.9 Type 2 diabetes mellitus without complications; Z88.2 Allergy status to sulfonamides; Z86.59 Personal history of other mental and behavioral disorders; W18.30XA Fall on same level, unspecified, initial encounter; Y93.89 Activity, other specified; Y92.89 Other specified places as the place of occurrence of the external cause; Y99.8 Other external cause status
CPT/HCPCS: 99284

== ENCOUNTER 2023-12-04 23:59 | Emergency (ER) | payer OTHER ==
[~2023-12-04] VITALS: Ht 172.7 cm; Wt 73.0 kg
[2023-12-05 00:01] VITALS: TEMP 98.2; O2SAT 100
[2023-12-05] MEDS: SODIUM CHLORIDE 0.9% 1,000 ML IV ONE (00:37)
[2023-12-05 00:57] LABS: CREATINE KINASE 144 IU/L (46-171)
[2023-12-05 01:12] LABS: ETHANOL BLOOD 444 mg/dL (<10)
[2023-12-05 03:29] VITALS: BP 139/79; PULSE 63; RESP 18
== END 2023-12-05 05:02 | disposition short-term general hospital (02) ==
LOC: ER 23:59
DX: G92.9 Unspecified toxic encephalopathy (principal); E11.9 Type 2 diabetes mellitus without complications; I10 Essential (primary) hypertension; F10.129 Alcohol abuse with intoxication, unspecified; Z59.00 Homelessness unspecified; Z79.82 Long term (current) use of aspirin; Z88.2 Allergy status to sulfonamides; Z86.59 Personal history of other mental and behavioral disorders; Y90.8 Blood alcohol level of 240 mg/100 ml or more
CPT/HCPCS: 99285; 80320; 82550; 36415; 93970; 96360; J7030; G0480

== ENCOUNTER 2023-12-10 01:07 | Emergency (ER) | payer OTHER ==
[~2023-12-10] VITALS: Ht 175.3 cm; Wt 79.0 kg
[2023-12-10] MEDS: FOLIC ACID 1 MG, THIAMINE HCL 100 MG, MVI, ADULT NO.1 10 ML in DEXTROSE 5% WATER 1,000 ML IV ONE (01:15)
[2023-12-10 01:27] VITALS: O2SAT 98
[2023-12-10 01:33] LABS: HEMATOCRIT. 27.7 % (42.0-52.0); HEMOGLOBIN. 8.9 g/dL (14.0-18.0); MEAN CORPUSCULAR VOLUME 68.7 fL (80.0-94.0); MEAN PLATELET VOLUME 6.8 fl (7.4-10.4); PLATELET 244 x1000/uL (130-400); RED BLOOD CELL COUNT 4.03 mill/uL (4.7-6.1); RED CELL DISTRIBUTION WIDTH 21.8 % (11.6-14.6); WHITE BLOOD COUNT 4.5 x1000/uL (4.5-11.0)
[2023-12-10 01:36] LABS: DIFFERENTIAL COMMENT 1
[2023-12-10 01:41] LABS: CHLORIDE 109 mEq/L (98-107); POTASSIUM 3.8 mEq/L (3.5-5.1); SODIUM 142 mEq/L (136-145)
[2023-12-10 01:42] LABS: CALCIUM 8.5 mg/dL (8.7-10.4); CARBON DIOXIDE 27 mEq/L (21-32)
[2023-12-10 01:47] LABS: CREATININE 0.9 mg/dL (0.6-1.3); GLUCOSE 91 mg/dL (70-105); UREA NITROGEN BLOOD 8 mg/dL (9-23)
[2023-12-10 01:48] LABS: TROPONIN I HIGH SENSITIVITY 7 ng/L (3.0-53)
[2023-12-10 02:00] LABS: ETHANOL BLOOD 432 mg/dL (<10)
[2023-12-10 02:33] LABS: *AMPHETAMINES SCREEN URINE NEGATIVE (NEGATIVE); *BARBITURATES SCREEN URINE NEGATIVE (NEGATIVE); *BENZODIAZEPINES SCREEN URINE PRESUMPTIVE POSITIVE (NEGATIVE); *COCAINE SCREEN URINE NEGATIVE (NEGATIVE); METHADONE URINE SCREEN NEGATIVE (NEGATIVE); OPIATES URINE SCREEN NEGATIVE (NEGATIVE); PHENCYCLIDINE URINE SCREEN NEGATIVE (NEGATIVE)
[2023-12-10 02:34] LABS: CANNABINOID URINE SCREEN NEGATIVE (NEGATIVE); ECSTASY MDMA SCREEN URINE NEGATIVE (NEGATIVE)
[2023-12-10] MEDS ORDERED: ZOLPIDEM TARTRATE 5MG TABLET PO PRN (06:45)
[2023-12-10] MEDS ORDERED: IPRATROPIUM/ALBUTEROL 0.5-3(2.5)MG/3ML NEB NEB PRN (06:45)
[2023-12-10] MEDS ORDERED: ONDANSETRON HCL 4MG/2ML INJ IV PRN (06:45)
[2023-12-10] MEDS ORDERED: NITROGLYCERIN 0.4MG TABLET SL SL PRN (06:45)
[2023-12-10] MEDS ORDERED: LORAZEPAM 2MG/ML INJ IV PRN (06:45)
[2023-12-10] MEDS ORDERED: MAGNESIUM/ALUMINUM HYDROXIDE/SIMETHICONE 30ML UDC PO PRN (06:45)
[2023-12-10] MEDS ORDERED: KETOROLAC 15MG/ML VIAL IV PRN (06:45)
[2023-12-10] MEDS ORDERED: DOCUSATE SODIUM 100MG CAPSULE PO PRN (06:45)
[2023-12-10] MEDS ORDERED: CLONIDINE 0.1MG TABLET PO PRN (06:45)
[2023-12-10] MEDS ORDERED: GUAIFENESIN 200MG/10ML SUGAR FREE UDC PO PRN (06:45)
[2023-12-10] MEDS ORDERED: ACETAMINOPHEN 325MG TABLET PO PRN ×2 (06:45)
[2023-12-10 07:54] LABS: T4 FREE 1.15 ng/dL (0.89-1.76); THYROID STIMULATING HORMONE 2.43 uIU/mL (0.55-4.78)
[2023-12-10] MEDS: PANTOPRAZOLE SODIUM 40 MG/VIAL IV SCH (09:54)
[2023-12-10 10:21] VITALS: BP 122/72; PULSE 84; RESP 12; TEMP 98.5
[2023-12-10 11:48] LABS: MICROCYTOSIS 1+; PLATELET ESTIMATE NORMAL; TARGET CELLS 1+
== END 2023-12-10 10:23 | disposition home or self-care (01) ==
LOC: ER 01:07
DX: T51.0X1A Toxic effect of ethanol, accidental (unintentional), initial encounter (principal); R53.1 Weakness; R41.82 Altered mental status, unspecified; E11.9 Type 2 diabetes mellitus without complications; I10 Essential (primary) hypertension; F20.9 Schizophrenia, unspecified; Z79.899 Other long term (current) drug therapy; Y92.89 Other specified places as the place of occurrence of the external cause
CPT/HCPCS: 80305; 80048; 80320; 83036; 83880; 84439; 84443; 85025; 84484; 36415; 71045; 70450; 93005; 96367; 96365; 96366; 99285; J3490 ×2; J3411; J7070; G0480

== ENCOUNTER 2023-12-17 20:27 | Emergency (ER) | payer OTHER ==
[~2023-12-17] VITALS: Ht 177.8 cm; Wt 73.0 kg
[2023-12-17 20:36] VITALS: BP 136/86; PULSE 82; RESP 18; TEMP 98.2; O2SAT 97
== END 2023-12-18 04:02 | disposition home or self-care (01) ==
LOC: ER 20:27
DX: F10.129 Alcohol abuse with intoxication, unspecified (principal); F20.9 Schizophrenia, unspecified; R56.9 Unspecified convulsions; Z86.73 Personal history of transient ischemic attack (TIA), and cerebral infarction without residual deficits; Z79.899 Other long term (current) drug therapy
CPT/HCPCS: 99283

== ENCOUNTER 2023-12-23 17:59 | Emergency (ER) | payer OTHER ==
[~2023-12-23] VITALS: Ht 165.1 cm; Wt 68.0 kg
[2023-12-23 18:02] VITALS: BP 136/81; PULSE 78; RESP 18; TEMP 98.3; O2SAT 99
[2023-12-23] MEDS ORDERED: IBUPROFEN 600MG TABLET PO ONE (18:45)
== END 2023-12-23 19:07 | disposition home or self-care (01) ==
LOC: ER 17:59
DX: F10.129 Alcohol abuse with intoxication, unspecified (principal); M54.9 Dorsalgia, unspecified; F20.9 Schizophrenia, unspecified; Z86.73 Personal history of transient ischemic attack (TIA), and cerebral infarction without residual deficits; Z88.2 Allergy status to sulfonamides; Y90.9 Presence of alcohol in blood, level not specified
CPT/HCPCS: 99283

== ENCOUNTER 2023-12-30 20:44 | Emergency (ER) | payer OTHER ==
[~2023-12-30] VITALS: Ht 167.6 cm; Wt 65.0 kg
[2023-12-30 20:50] VITALS: O2SAT 98
[2023-12-30 21:29] VITALS: TEMP 98.2
[2023-12-30 21:36] LABS: HEMATOCRIT. 26.7 % (42.0-52.0); HEMOGLOBIN. 8.5 g/dL (14.0-18.0); MEAN CORPUSCULAR HEMOGLOBIN 21.7 pg (28.0-32.0); MEAN CORPUSCULAR HGB CONC 31.7 g/dL (31.0-37.0); MEAN CORPUSCULAR VOLUME 68.6 fL (80.0-94.0); MEAN PLATELET VOLUME 8.3 fl (7.4-10.4); PLATELET 111 x1000/uL (130-400); RED BLOOD CELL COUNT 3.89 mill/uL (4.7-6.1); RED CELL DISTRIBUTION WIDTH 22.2 % (11.6-14.6)
[2023-12-30 21:37] LABS: DIFFERENTIAL COMMENT 1
[2023-12-30 21:42] LABS: CHLORIDE 106 mEq/L (98-107); POTASSIUM 3.7 mEq/L (3.5-5.1); SODIUM 139 mEq/L (136-145)
[2023-12-30 21:43] LABS: CALCIUM 8.5 mg/dL (8.7-10.4); CARBON DIOXIDE 24 mEq/L (21-32)
[2023-12-30 21:48] LABS: CREATININE 1.1 mg/dL (0.6-1.3); GLUCOSE 105 mg/dL (70-105); UREA NITROGEN BLOOD 8 mg/dL (9-23)
[2023-12-30 21:50] LABS: ALANINE AMINOTRANSFERASE 40 IU/L (10-49); ALBUMIN 4.2 g/dL (3.2-4.8); ASPARTATE AMINOTRANSFERASE 69 IU/L (<34); BILIRUBIN TOTAL 0.3 mg/dL (0.1-1.0); PROTEIN TOTAL 7.2 g/dL (6.0-8.3)
[2023-12-30 21:55] LABS: ANISOCYTOSIS 2+; HYPOCHROMASIA 2+; MICROCYTOSIS 3+; PLATELET ESTIMATE DECREASED
[2023-12-30 22:16] LABS: ETHANOL BLOOD 442 mg/dL (<10)
[2023-12-31 05:02] VITALS: BP 136/84; PULSE 75; RESP 18
== END 2023-12-31 05:17 | disposition home or self-care (01) ==
LOC: ER 20:44
DX: F10.20 Alcohol dependence, uncomplicated (principal); I10 Essential (primary) hypertension; F20.9 Schizophrenia, unspecified; R41.0 Disorientation, unspecified; Z79.899 Other long term (current) drug therapy; Y90.9 Presence of alcohol in blood, level not specified
CPT/HCPCS: 36415; 80053; 80320; 85025; 99285; G0480

== ENCOUNTER 2024-01-19 16:10 | Emergency (ER) | payer OTHER ==
[~2024-01-19] VITALS: Ht 177.8 cm; Wt 79.0 kg
[2024-01-19 16:19] VITALS: O2SAT 99
[2024-01-19 17:38] LABS: HEMATOCRIT 28.2 % (42.0-52.0); HEMOGLOBIN 8.9 g/dL (14.0-18.0); MEAN CORPUSCULAR HGB CONC 31.7 g/dL (31.0-37.0); MEAN CORPUSCULAR VOLUME 69.6 fL (80.0-94.0); PLATELET 130 x1000/uL (130-400); RED BLOOD CELL COUNT 4.05 mill/uL (4.7-6.1); RED CELL DISTRIBUTION WIDTH 21.7 % (11.6-14.6); WHITE BLOOD COUNT 2.7 x1000/uL (4.5-11.0)
[2024-01-19 17:45] LABS: CHLORIDE 110 mEq/L (98-107); POTASSIUM 4.2 mEq/L (3.5-5.1); SODIUM 142 mEq/L (136-145)
[2024-01-19 17:46] LABS: CALCIUM 8.6 mg/dL (8.7-10.4); CARBON DIOXIDE 24 mEq/L (21-32)
[2024-01-19 17:51] LABS: CREATININE 0.9 mg/dL (0.6-1.3); GLUCOSE 85 mg/dL (70-105); UREA NITROGEN BLOOD 9 mg/dL (9-23)
[2024-01-19 18:08] LABS: ETHANOL BLOOD 458 mg/dL (<10)
[2024-01-19] MEDS: ACETAMINOPHEN 500MG TABLET PO ONE (19:18)
[2024-01-20 01:14] VITALS: BP 110/68; PULSE 70; RESP 14; TEMP 98.7
== END 2024-01-20 01:52 | disposition home or self-care (01) ==
LOC: ER 16:10
DX: S62.644A Nondisplaced fracture of proximal phalanx of right ring finger, initial encounter for closed fracture (principal); F10.229 Alcohol dependence with intoxication, unspecified; I10 Essential (primary) hypertension; F20.9 Schizophrenia, unspecified; Z79.899 Other long term (current) drug therapy; X58.XXXA Exposure to other specified factors, initial encounter; Y93.89 Activity, other specified; Y92.89 Other specified places as the place of occurrence of the external cause; Y99.8 Other external cause status; Y90.8 Blood alcohol level of 240 mg/100 ml or more
CPT/HCPCS: 29125; 36415; 73120; 80048; 80320; 85027; 99284; G0480

== ENCOUNTER 2024-02-01 00:53 | Emergency (ER) | payer OTHER ==
[~2024-02-01] VITALS: Ht 172.7 cm; Wt 63.5 kg
[2024-02-01 01:04] VITALS: O2SAT 99
[2024-02-01 01:20] LABS: HEMATOCRIT. 28.7 % (42.0-52.0); HEMOGLOBIN. 9.2 g/dL (14.0-18.0); MEAN CORPUSCULAR HEMOGLOBIN 22.3 pg (28.0-32.0); MEAN CORPUSCULAR HGB CONC 31.9 g/dL (31.0-37.0); MEAN CORPUSCULAR VOLUME 69.9 fL (80.0-94.0); MEAN PLATELET VOLUME 8.2 fl (7.4-10.4); PLATELET 189 x1000/uL (130-400); RED BLOOD CELL COUNT 4.11 mill/uL (4.7-6.1); RED CELL DISTRIBUTION WIDTH 21.8 % (11.6-14.6); WHITE BLOOD COUNT 3.6 x1000/uL (4.5-11.0)
[2024-02-01 01:33] LABS: CHLORIDE 104 mEq/L (98-107); POTASSIUM 3.6 mEq/L (3.5-5.1); SODIUM 135 mEq/L (136-145)
[2024-02-01 01:34] LABS: CALCIUM 9.1 mg/dL (8.7-10.4); CARBON DIOXIDE 23 mEq/L (21-32)
[2024-02-01 01:38] LABS: CLARITY URINE CLEAR (CLEAR); COLOR URINE YELLOW (YELLOW); GLUCOSE URINE NEGATIVE (NEGATIVE); KETONES URINE NEGATIVE (NEGATIVE); LEUKOCYTE ESTERASE URINE NEGATIVE (NEGATIVE); NITRITE URINE NEGATIVE (NEGATIVE); OCCULT BLOOD URINE NEGATIVE (NEGATIVE); PH URINE 5.5 (4.5-8.0); PROTEIN URINE NEGATIVE (NEGATIVE); SPECIFIC GRAVITY URINE 1.004 (1.005-1.030); UROBILINOGEN URINE 0.2 E.U./dL (0.2-1.0)
[2024-02-01 01:39] LABS: CREATININE 0.9 mg/dL (0.6-1.3); GLUCOSE 106 mg/dL (70-105); UREA NITROGEN BLOOD 9 mg/dL (9-23)
[2024-02-01 01:41] LABS: ACETAMINOPHEN < 2 ug/mL (10-30)
[2024-02-01 01:43] LABS: DIFFERENTIAL COMMENT 1
[2024-02-01 01:48] LABS: *AMPHETAMINES SCREEN URINE NEGATIVE (NEGATIVE); *BARBITURATES SCREEN URINE NEGATIVE (NEGATIVE); *BENZODIAZEPINES SCREEN URINE NEGATIVE (NEGATIVE); *COCAINE SCREEN URINE NEGATIVE (NEGATIVE); CANNABINOID URINE SCREEN NEGATIVE (NEGATIVE); ECSTASY MDMA SCREEN URINE NEGATIVE (NEGATIVE); METHADONE URINE SCREEN NEGATIVE (NEGATIVE); OPIATES URINE SCREEN NEGATIVE (NEGATIVE); PHENCYCLIDINE URINE SCREEN NEGATIVE (NEGATIVE)
[2024-02-01] MEDS: FOLIC ACID 1 MG, THIAMINE HCL 100 MG, MVI, ADULT NO.1 10 ML in DEXTROSE 5% WATER 1,000 ML IV NR (01:49)
[2024-02-01 02:15] LABS: ETHANOL BLOOD 478 mg/dL (<10)
[2024-02-01 03:23] LABS: HYPOCHROMASIA 1+
[2024-02-01 03:24] LABS: MICROCYTOSIS 2+
[2024-02-01 03:25] LABS: PLATELET ESTIMATE NORMAL
[2024-02-01 10:40] VITALS: BP 142/92; PULSE 90; RESP 18; TEMP 37.61412; O2SAT 100
== END 2024-02-01 10:45 | disposition home or self-care (01) ==
LOC: ER 00:53
DX: F10.229 Alcohol dependence with intoxication, unspecified (principal); I10 Essential (primary) hypertension; F20.9 Schizophrenia, unspecified; Z79.899 Other long term (current) drug therapy; Y90.8 Blood alcohol level of 240 mg/100 ml or more
CPT/HCPCS: 80305; 80048; 81003; 80307; 80329; 80320; 85025; 36415; 96365; 99285; J3490 ×2; J3411; J7070; G0480

== ENCOUNTER 2024-03-18 19:05 | Emergency (ER) | payer OTHER ==
[~2024-03-18] VITALS: Ht 177.8 cm; Wt 75.0 kg
[2024-03-18 19:07] VITALS: BP 141/92; PULSE 70; RESP 16; TEMP 98.2; O2SAT 97
== END 2024-03-19 00:55 | disposition home or self-care (01) ==
LOC: ER 19:05
DX: F10.229 Alcohol dependence with intoxication, unspecified (principal); I10 Essential (primary) hypertension; F20.9 Schizophrenia, unspecified; D64.9 Anemia, unspecified; Z79.899 Other long term (current) drug therapy; Z79.82 Long term (current) use of aspirin
CPT/HCPCS: 99283

== ENCOUNTER 2024-03-22 20:10 | Emergency (ER) | payer OTHER ==
[~2024-03-22] VITALS: Ht 172.7 cm; Wt 72.0 kg
[2024-03-22 20:14] VITALS: O2SAT 99
[2024-03-22] MEDS: ACETAMINOPHEN 325MG TABLET PO ONE (21:43)
[2024-03-23 06:48] VITALS: BP 121/91; PULSE 84; RESP 16; TEMP 36.72516; O2SAT 99
== END 2024-03-23 06:50 | disposition home or self-care (01) ==
LOC: ER 20:10
DX: F10.229 Alcohol dependence with intoxication, unspecified (principal); M54.9 Dorsalgia, unspecified; F20.9 Schizophrenia, unspecified; I10 Essential (primary) hypertension; D64.9 Anemia, unspecified; Z79.899 Other long term (current) drug therapy; Z79.82 Long term (current) use of aspirin; Y90.9 Presence of alcohol in blood, level not specified
CPT/HCPCS: 99283

== ENCOUNTER 2024-05-01 19:17 | Emergency (ER) | payer MEDICAID, OTHER ==
[~2024-05-01] VITALS: Ht 167.6 cm; Wt 66.0 kg
[2024-05-01 19:44] VITALS: O2SAT 100
[2024-05-01 20:48] LABS: BASOPHILS % 1.8 % (0.0-2.0); DIFFERENTIAL COMMENT 0; EOSINOPHILS % 2.6 % (0.0-5.0); HEMATOCRIT. 28.8 % (42.0-52.0); HEMOGLOBIN. 9.2 g/dL (14.0-18.0); LYMPHOCYTES % 23.3 % (20.0-50.0); MEAN CORPUSCULAR HEMOGLOBIN 23.5 pg (28.0-32.0); MEAN CORPUSCULAR HGB CONC 31.8 g/dL (31.0-37.0); MEAN CORPUSCULAR VOLUME 73.9 fL (80.0-94.0); MEAN PLATELET VOLUME 8.5 fl (7.4-10.4); MONOCYTES % 12.7 % (2.0-8.0); NEUTROPHILS % 59.6 % (40.0-76.0); PLATELET 236 x1000/uL (130-400); RED CELL DISTRIBUTION WIDTH 21.1 % (11.6-14.6); WHITE BLOOD COUNT 5.1 x1000/uL (4.5-11.0)
[2024-05-01 20:52] LABS: CARBON DIOXIDE 25 mEq/L (21-32); CHLORIDE 109 mEq/L (98-107); SODIUM 142 mEq/L (136-145)
[2024-05-01 20:53] LABS: CALCIUM 8.6 mg/dL (8.7-10.4)
[2024-05-01 20:57] LABS: CREATININE 0.9 mg/dL (0.6-1.3)
[2024-05-01 20:58] LABS: GLUCOSE 95 mg/dL (70-105); UREA NITROGEN BLOOD 11 mg/dL (9-23)
[2024-05-01 20:59] LABS: ALANINE AMINOTRANSFERASE 45 IU/L (10-49)
[2024-05-01 21:00] LABS: ALBUMIN 4.1 g/dL (3.2-4.8); ASPARTATE AMINOTRANSFERASE 67 IU/L (<34); BILIRUBIN TOTAL 0.2 mg/dL (0.1-1.0); PROTEIN TOTAL 7.4 g/dL (6.0-8.3)
[2024-05-01] MEDS: IBUPROFEN 600MG TABLET PO ONE (21:30)
[2024-05-02 00:24] VITALS: BP 133/74; PULSE 80; RESP 18; TEMP 36.83628; O2SAT 100
== END 2024-05-02 00:44 | disposition admitted as inpatient to this hospital (09) ==
LOC: ER 19:17
DX: R10.9 Unspecified abdominal pain (principal); R26.2 Difficulty in walking, not elsewhere classified; F20.9 Schizophrenia, unspecified; I10 Essential (primary) hypertension; G31.89 Other specified degenerative diseases of nervous system; Z79.899 Other long term (current) drug therapy; Z79.82 Long term (current) use of aspirin
CPT/HCPCS: 36415; 74177; 80053; 85025; 99285

== ENCOUNTER 2024-05-27 19:39 | Emergency (ER) | payer MEDICAID ==
[~2024-05-27] VITALS: Ht 177.8 cm; Wt 80.0 kg
[2024-05-27 20:03] VITALS: BP 137/94; PULSE 72; RESP 18; TEMP 98.2; O2SAT 100
[2024-05-27 23:49] LABS: HEMATOCRIT 31.2 % (42.0-52.0); HEMOGLOBIN 9.7 g/dL (14.0-18.0); MEAN CORPUSCULAR HGB CONC 31.2 g/dL (31.0-37.0); MEAN CORPUSCULAR VOLUME 73.6 fL (80.0-94.0); PLATELET 180 x1000/uL (130-400); RED BLOOD CELL COUNT 4.24 mill/uL (4.7-6.1); RED CELL DISTRIBUTION WIDTH 21.9 % (11.6-14.6); WHITE BLOOD COUNT 3.2 x1000/uL (4.5-11.0)
[2024-05-27 23:52] LABS: CHLORIDE 110 mEq/L (98-107); SODIUM 143 mEq/L (136-145)
[2024-05-27 23:53] LABS: CALCIUM 8.7 mg/dL (8.7-10.4); CARBON DIOXIDE 22 mEq/L (21-32)
[2024-05-27 23:58] LABS: GLUCOSE 93 mg/dL (70-105); UREA NITROGEN BLOOD 7 mg/dL (9-23)
[2024-05-28 00:08] LABS: ETHANOL BLOOD 363 mg/dL (<10)
== END 2024-05-28 01:41 | disposition home or self-care (01) ==
LOC: ER 19:39
DX: F10.129 Alcohol abuse with intoxication, unspecified (principal); G40.909 Epilepsy, unspecified, not intractable, without status epilepticus; I10 Essential (primary) hypertension; Z79.899 Other long term (current) drug therapy; Z86.73 Personal history of transient ischemic attack (TIA), and cerebral infarction without residual deficits; Y90.9 Presence of alcohol in blood, level not specified
CPT/HCPCS: 36415; 71045; 80048; 80320; 85027; 99284; G0480

== ENCOUNTER 2024-11-01 02:17 | Emergency (ER) | payer OTHER ==
[~2024-11-01] VITALS: Ht 172.7 cm; Wt 67.0 kg
[2024-11-01 02:31] VITALS: O2SAT 99
[2024-11-01] MEDS ORDERED: HYDR453.3 TP (03:41)
[2024-11-01] MEDS ORDERED: ACET-2708 MT (03:41)
[2024-11-01] MEDS ORDERED: LIDO-53 TP (03:41)
[2024-11-01] MEDS: ACETAMINOPHEN 325MG TABLET PO ONE (03:53)
[2024-11-01] MEDS: LIDOCAINE 5% PATCH TOP SCH (03:54)
[2024-11-01 04:08] VITALS: BP 118/81; PULSE 74; RESP 15; TEMP 36.4; O2SAT 98
== END 2024-11-01 04:10 | disposition home or self-care (01) ==
LOC: ER 02:17
DX: M79.641 Pain in right hand (principal); M79.642 Pain in left hand; M54.50 Low back pain, unspecified; M79.89 Other specified soft tissue disorders; I10 Essential (primary) hypertension; R56.9 Unspecified convulsions; Z79.82 Long term (current) use of aspirin; Z79.899 Other long term (current) drug therapy
CPT/HCPCS: 99283